=== PATIENT | male | born 1950 | race Caucasian/White ===

== ENCOUNTER 2020-07-04 15:26 | Inpatient (IN) | payer MEDICARE ==
[2020-07-04] MEDS ORDERED: Ondansetron PF 4 MG/2 ML Vial IVP PRN (16:29)
[2020-07-04] MEDS ORDERED: Diazepam 5 MG TAB PO PRN (16:29)
[2020-07-04] MEDS ORDERED: Communication Order-Pharmacy FS SCH (16:29)
[2020-07-04] MEDS ORDERED: Dextrose 50% Abboject 50 ML SYRINGE SLOW IVP PRN ×2 (16:31→16:33)
[2020-07-04] MEDS ORDERED: Dextrose 5% in Water 1,000 ML IV PRN ×2 (16:31→16:33)
[2020-07-04] MEDS ORDERED: Melatonin 3 MG TAB PO PRN (16:31)
[2020-07-04] MEDS ORDERED: HumaLOG 300 UNITS/3 ML VIAL SC PRN ×3 (16:33→16:37)
[2020-07-04 17:07] LABS: #Basophils 0.1 thou/uL (0.0-0.2); #Eosinphils 0.3 thou/uL (0.0-0.7); #Lymphocytes 1.9 thou/uL (1.20-3.40); #Monocytes 0.8 thou/uL (0.11-0.59); #Neutrophils 8.2 thou/uL (1.40-6.50); %Basophils 0.7 % (0.0-1.0); %Eosinophils 2.5 % (0.0-10.0); %Lymphocytes 16.8 % (21.0-51.0); %Monocytes 7.4 % (0.0-10.0); %Neutrophils 72.6 % (42.0-75.0); Hemoglobin 13.4 g/dL (14.0-18.0); Mean Corpuscular HGB CONC 33.5 g/dL (32.0-36.0); Mean Corpuscular Hemoglobin 31.8 pg (27.0-31.0); Mean Platelet Volume 7.9 fL (7.4-10.4); Platelet Count 198 thou/uL (130-400); RBC Distribution Width 11.7 % (11.5-14.5); Red Blood Cell (RBC) Count 4.22 mill/uL (4.70-6.10); White Blood Cell (WBC) Count 11.3 thou/uL (4.8-10.8)
[2020-07-04 17:12] VITALS: BMI 29.9
[2020-07-04 17:12] LABS: INR-International Normal Ratio 1.1; Prothrombin Time 14.4 sec (12.0-14.7)
[2020-07-04 17:13] LABS: PTT 33.6 sec (22.9-36.1)
[2020-07-04 17:17] LABS: Hemoglobin A1c 5.1 % (4.0-6.0)
[2020-07-04 17:31] LABS: Phosphorus 2.8 mg/dL (2.3-4.7)
[2020-07-04 17:35] LABS: ALT (SGPT) 16 U/L (8-55); AST (SGOT) 12 U/L (5-34); Albumin 4.1 g/dL (3.4-4.8); Alkaline Phosphatase 46 U/L (40-110); Anion Gap 12 mmol/L (10-20); BUN (Urea Nitrogen) 13 mg/dL (8.4-25.7); Bilirubin, Total 0.5 mg/dL (0.2-1.2); Calc. Creatinine Clearance 124 mL/min (70-130); Calcium 8.8 mg/dL (7.8-10.44); Carbon Dioxide 23 mmol/L (23-31); Chloride 105 mmol/L (98-107); Globulin 2.9 g/dL (2.4-3.5); Glucose 111 mg/dL (80-115); Magnesium 1.8 mg/dL (1.6-2.6); Potassium 3.6 mmol/L (3.5-5.1); Sodium 136 mmol/L (136-145)
[2020-07-04 17:36] LABS: Troponin I 0.017 ng/mL (< 0.028)
[2020-07-04] MEDS ORDERED: Atropine Sulfate 1 mg/1 ml Vial IVP PRN (19:33)
[2020-07-04] MEDS ORDERED: Magnesium 2 GM/50 ML 2 GM in Premix Bag 1 BAG IVPB SCH (19:45)
[2020-07-04] MEDS ORDERED: Enoxaparin Sodium 80 MG/0.8 ML SYRINGE SC SCH (21:00)
[2020-07-04] MEDS ORDERED: Famotidine 20 MG TAB PO SCH (21:00)
[2020-07-04] MEDS ORDERED: Atorvastatin Calcium 10 MG TAB PO SCH (21:00)
[2020-07-05 01:27] LABS: SARS-CoV-2 PCR by NAA Not Detected (NotDetected)
[2020-07-05] MEDS: Levothyroxine Sodium 75 MCG TAB PO SCH ×2 (04:41→07:44)
[2020-07-05 04:53] LABS: #Basophils 0.1 thou/uL (0.0-0.2); #Eosinphils 0.3 thou/uL (0.0-0.7); #Monocytes 0.7 thou/uL (0.11-0.59); #Neutrophils 5.9 thou/uL (1.40-6.50); %Basophils 0.7 % (0.0-1.0); %Eosinophils 3.5 % (0.0-10.0); %Lymphocytes 22.7 % (21.0-51.0); %Monocytes 7.5 % (0.0-10.0); %Neutrophils 65.6 % (42.0-75.0); Mean Corpuscular HGB CONC 33.3 g/dL (32.0-36.0); Mean Corpuscular Hemoglobin 31.4 pg (27.0-31.0); Mean Corpuscular Volume 94.5 fL (78.0-98.0); Mean Platelet Volume 7.5 fL (7.4-10.4); Platelet Count 181 thou/uL (130-400); RBC Distribution Width 11.7 % (11.5-14.5); Red Blood Cell (RBC) Count 4.15 mill/uL (4.70-6.10)
[2020-07-05 05:13] LABS: Anion Gap 10 mmol/L (10-20); BUN (Urea Nitrogen) 12 mg/dL (8.4-25.7); Calc. Creatinine Clearance 127 mL/min (70-130); Calcium 8.7 mg/dL (7.8-10.44); Carbon Dioxide 26 mmol/L (23-31); Chloride 106 mmol/L (98-107); Glucose 105 mg/dL (80-115); Potassium 3.8 mmol/L (3.5-5.1); Sodium 138 mmol/L (136-145)
[2020-07-05] MEDS ORDERED: Albumin 5% 500 ML ONE (07:14)
[2020-07-05] MEDS: Aspirin 325 mg Enteric Coated Tablet PO SCH ×2 (07:44→16:53)
[2020-07-05] MEDS ORDERED: Clindamycin/D5W 900 MG in Premix Bag 1 BAG IVPB SCH (11:00)
[2020-07-05] MEDS ORDERED: EPINEPHrine 1 MG/ML AMP ONE (11:02)
[2020-07-05] MEDS ORDERED: Dexamethasone 4 mg/ml Vial ONE (11:02)
[2020-07-05] MEDS ORDERED: Bupivacaine PF 0.5% 30 ML VIAL ONE (11:02)
[2020-07-05] MEDS ORDERED: Midazolam HCl 2 mg/2 ml Vial ONE (11:06)
[2020-07-05] MEDS ORDERED: Dexmedetomidine 200 MCG/2 ML VIAL ONE (11:06)
[2020-07-05] MEDS ORDERED: Fentanyl 100 MCG/2 ML VIAL ONE ×2 (11:06→15:23)
[2020-07-05] MEDS ORDERED: Vecuronium 10 MG VIAL ONE ×3 (11:06→11:30)
[2020-07-05] MEDS ORDERED: Midazolam HCl 5 mg/5 ml Vial ONE (11:06)
[2020-07-05] MEDS ORDERED: Clindamycin/D5W 900 mg/50 ml Premix Bag ONE (11:08)
[2020-07-05] MEDS ORDERED: Mannitol 12.5 GM/50 ML ONE (11:30)
[2020-07-05] MEDS ORDERED: Ondansetron PF 4 MG/2 ML Vial ONE (11:30)
[2020-07-05] MEDS ORDERED: Ketorolac Tromethamine 30 MG/ML VIAL ONE (11:30)
[2020-07-05] MEDS ORDERED: Glycopyrrolate 0.2 MG/ML 5 ML SYRINGE ONE (11:30)
[2020-07-05] MEDS ORDERED: Magnesium Sulfate 1 GM/2 ML VIAL ONE (11:30)
[2020-07-05] MEDS ORDERED: Nitroglycerin 50 MG/250 ML BOT ONE (11:30)
[2020-07-05] MEDS ORDERED: Papaverine 60 MG/2 ML VIAL ONE (11:30)
[2020-07-05] MEDS ORDERED: PHENYLEPHRINE-NS 100 MCG/ML 10 ML SYRINGE ONE (11:30)
[2020-07-05] MEDS ORDERED: Heparin 30,000 units/30 ml VIAL ONE (11:30)
[2020-07-05] MEDS ORDERED: Lidocaine 1% PF 5 ML VIAL ONE (11:30)
[2020-07-05] MEDS ORDERED: Protamine Sulfate 250 MG/25 ML VIAL ONE (11:30)
[2020-07-05] MEDS ORDERED: Cardioplegic Soln 1,000 ML BAG ONE (11:30)
[2020-07-05] MEDS ORDERED: Thrombin 5000 UNITS/5 ML VIAL ONE (11:30)
[2020-07-05] MEDS ORDERED: Sodium Bicarb 50 MEQ/50 ML Abboject 8.4% SYRINGE ONE (11:30)
[2020-07-05] MEDS ORDERED: Heparin 5,000 UNITS/ML VIAL ONE (11:30)
[2020-07-05] MEDS ORDERED: Aminocaproic Acid 5 GM/20 ML VIAL ONE (11:30)
[2020-07-05] MEDS ORDERED: Calcium Chloride 1 GM/10 ML Abboject SYRINGE ONE ×2 (11:30→17:26)
[2020-07-05] MEDS ORDERED: PROPOFOL 200 MG/20 ML VIAL ONE (11:30)
[2020-07-05] MEDS ORDERED: Lidocaine 2% PF 100 mg/5 ml Syringe ONE (11:30)
[2020-07-05] MEDS ORDERED: Potassium Chloride 60 MEQ/30 ML VIAL ONE (11:30)
[2020-07-05] MEDS ORDERED: Nitroglycerin 50 MG/250 ML BOT 250 ML ONE (15:41)
[2020-07-05] MEDS ORDERED: hydrALAZINE 20 MG/ML VIAL ONE (15:46)
[2020-07-05 16:00] LABS: Actual Bicarbonate (HCO3a) 19.1 mEq/L (22-28); Base Excess (BEa) -7.2 mEq/L (-2.0 to +3.0); CO2 Tension 41.2 mmHg (35.0-45.0); Calcium, Ionized (arterial) 1.14 mmol/L (1.12-1.30); Carboxyhemoglobin (COHb) 0.6 gm% (0.0-3.0); Hemoglobin (Hb) 13.1 g/dL (14.0-18.0); pH, Arterial 7.28 (7.35-7.45)
[2020-07-05] MEDS ORDERED: niCARdipine 25 MG in Sodium Chloride 0.9% 250 ML 240 ML IVPB SCH (16:00)
[2020-07-05 16:01] LABS: Puncture Site Arterial Line
[2020-07-05] MEDS ORDERED: Potassium Chloride 20 MEQ/100 ML PREMIX BAG IVPB PRN (16:01)
[2020-07-05] MEDS ORDERED: Mag-Al 1200 mg/1200 mg/30 ML UDCUP PO PRN (16:01)
[2020-07-05] MEDS ORDERED: Promethazine HCl 25 MG/ML VIAL IM PRN (16:01)
[2020-07-05] MEDS ORDERED: Nitroglycerin 50 MG/250 ML BOT 250 ML IVPB PRN (16:01)
[2020-07-05] MEDS ORDERED: Morphine 2 MG/ML VIAL SLOW IVP PRN (16:01)
[2020-07-05] MEDS ORDERED: Bisacodyl 10 MG SUPP PR PRN (16:01)
[2020-07-05] MEDS ORDERED: Guaifenesin DM 100-10/5 ML UDCUP PO PRN (16:01)
[2020-07-05] MEDS ORDERED: D5 1/2 NS w/20 mEq KCL 1,000 ML IV SCH (16:01)
[2020-07-05] MEDS ORDERED: Post-Op Insulin Drip Protocol IVPB ONE (16:01)
[2020-07-05] MEDS ORDERED: Magnesium 2 GM/50 ML 2 GM in Premix Bag 1 BAG IVPB SCH (16:01)
[2020-07-05] MEDS ORDERED: Acetaminophen 325 MG TAB PO PRN (16:01)
[2020-07-05] MEDS ORDERED: hydrALAZINE 20 MG/ML VIAL SLOW IVP PRN (16:01)
[2020-07-05] MEDS ORDERED: Morphine 4 MG/ML VIAL ONE (16:03)
[2020-07-05] MEDS ORDERED: Propofol 1,000 MG/100 ML VIAL IV ONE (16:10)
[2020-07-05 16:12] LABS: #Eosinphils 0.1 thou/uL (0.0-0.7); #Lymphocytes 1.4 thou/uL (1.20-3.40); #Monocytes 0.8 thou/uL (0.11-0.59); #Neutrophils 14.3 thou/uL (1.40-6.50); %Basophils 0.2 % (0.0-1.0); %Eosinophils 0.7 % (0.0-10.0); %Lymphocytes 8.5 % (21.0-51.0); %Monocytes 4.6 % (0.0-10.0); Hemoglobin 12.5 g/dL (14.0-18.0); Mean Corpuscular HGB CONC 33.8 g/dL (32.0-36.0); Mean Corpuscular Hemoglobin 32.4 pg (27.0-31.0); Mean Platelet Volume 8.1 fL (7.4-10.4); Platelet Count 139 thou/uL (130-400); RBC Distribution Width 11.7 % (11.5-14.5); Red Blood Cell (RBC) Count 3.85 mill/uL (4.70-6.10); White Blood Cell (WBC) Count 16.6 thou/uL (4.8-10.8)
[2020-07-05 16:17] LABS: PTT 34.2 sec (22.9-36.1)
[2020-07-05 16:18] LABS: INR-International Normal Ratio 1.3; Prothrombin Time 16.8 sec (12.0-14.7)
[2020-07-05] MEDS: Clindamycin/D5W 900 MG in Premix Bag 1 BAG IVPB SCH ×2 (16:30→21:38)
[2020-07-05] MEDS ORDERED: Propofol 1,000 MG/100 ML VIAL IV PRN (16:30)
[2020-07-05] MEDS ORDERED: Propofol BOLUS 1,000 MG/100 ML VIAL IV PRN (16:30)
[2020-07-05 16:32] LABS: Anion Gap 12 mmol/L (10-20); BUN (Urea Nitrogen) 11 mg/dL (8.4-25.7); Calc. Creatinine Clearance 133 mL/min (70-130); Carbon Dioxide 23 mmol/L (23-31); Chloride 107 mmol/L (98-107); Glucose 158 mg/dL (80-115); Potassium 4.3 mmol/L (3.5-5.1); Sodium 138 mmol/L (136-145)
[2020-07-05] MEDS ORDERED: Insulin Regular 300 UNITS/3 ML VIAL SC PRN (16:45)
[2020-07-05] MEDS ORDERED: Dextrose 5% in Water 1,000 ML IV PRN (16:45)
[2020-07-05] MEDS ORDERED: HUMULIN R 100 UNITS in Sodium Chloride 0.9% 100 ML IVPB SCH (16:45)
[2020-07-05] MEDS: DOPamine 400 MG/D5W 250 ML 250 ML IVPB PRN (17:20)
[2020-07-05 17:45] LABS: Actual Bicarbonate (HCO3a) 18.9 mEq/L (22-28); Base Excess (BEa) -6.8 mEq/L (-2.0 to +3.0); CO2 Tension 38.8 mmHg (35.0-45.0); Calcium, Ionized (arterial) 1.29 mmol/L (1.12-1.30); Carboxyhemoglobin (COHb) 0.5 gm% (0.0-3.0); Hemoglobin (Hb) 12.9 g/dL (14.0-18.0); O2 Tension (PaO2), arterial 96.3 mmHg (> 70.0); Potassium - ABG Lab 3.89 mmol/L (3.70-5.30); pH, Arterial 7.31 (7.35-7.45)
[2020-07-05 17:47] LABS: Puncture Site Arterial Line
[2020-07-05] MEDS: Hetastarch 6% 500 ML 500 ML IVPB PRN (17:52)
[2020-07-05] MEDS: Ketorolac Tromethamine 30 MG/ML VIAL IVP SCH ×2 (18:10→23:34)
[2020-07-05] MEDS: Fentanyl 100 MCG/2 ML VIAL SLOW IVP PRN ×2 (19:15→21:35)
[2020-07-05] MEDS: traMADol HCl 50 MG TAB PO PRN (20:15)
[2020-07-05] MEDS: Famotidine/PF 20 mg/2ml Vial SLOW IVP SCH (20:16)
[2020-07-05] MEDS: Ondansetron PF 4 MG/2 ML Vial IVP PRN (20:16)
[2020-07-05] MEDS ORDERED: Atorvastatin Calcium 20 MG TAB PO SCH (21:00)
[2020-07-05 21:29] LABS: Potassium 4.4 mmol/L (3.5-5.1)
[2020-07-06] MEDS: Fentanyl 100 MCG/2 ML VIAL SLOW IVP PRN ×7 (01:08→23:35)
[2020-07-06] MEDS: DOPamine 400 MG/D5W 250 ML 250 ML IVPB PRN (01:59)
[2020-07-06] MEDS: Clindamycin/D5W 900 MG in Premix Bag 1 BAG IVPB SCH (04:17)
[2020-07-06] MEDS: Hetastarch 6% 500 ML 500 ML IVPB PRN (04:17)
[2020-07-06 04:50] LABS: #Lymphocytes 0.7 thou/uL (1.20-3.40); #Monocytes 0.9 thou/uL (0.11-0.59); #Neutrophils 10.3 thou/uL (1.40-6.50); %Basophils 0.1 % (0.0-1.0); %Eosinophils 0.1 % (0.0-10.0); %Lymphocytes 5.9 % (21.0-51.0); %Monocytes 7.6 % (0.0-10.0); %Neutrophils 86.4 % (42.0-75.0); Hemoglobin 9.6 g/dL (14.0-18.0); Mean Corpuscular HGB CONC 33.1 g/dL (32.0-36.0); Mean Corpuscular Hemoglobin 31.6 pg (27.0-31.0); Mean Corpuscular Volume 95.5 fL (78.0-98.0); Mean Platelet Volume 7.6 fL (7.4-10.4); Platelet Count 130 thou/uL (130-400); RBC Distribution Width 11.7 % (11.5-14.5); Red Blood Cell (RBC) Count 3.03 mill/uL (4.70-6.10); White Blood Cell (WBC) Count 11.9 thou/uL (4.8-10.8)
[2020-07-06 05:14] LABS: Anion Gap 10 mmol/L (10-20); BUN (Urea Nitrogen) 14 mg/dL (8.4-25.7); Calc. Creatinine Clearance 131 mL/min (70-130); Calcium 7.6 mg/dL (7.8-10.44); Carbon Dioxide 22 mmol/L (23-31); Cardiac Risk 3.5 (Less than 4.5); Chloride 109 mmol/L (98-107); Cholesterol 73 mg/dl (< 200 Desired); Glucose 121 mg/dL (80-115); HDL Cholesterol 21 mg/dL (>60 Neg Risk); LDL Cholesterol, Calculated 39 mg/dL; Potassium 4.4 mmol/L (3.5-5.1); Sodium 137 mmol/L (136-145); Triglycerides 65 mg/dL (Less than 150)
[2020-07-06] MEDS: Ketorolac Tromethamine 30 MG/ML VIAL IVP SCH ×3 (05:51→17:21)
[2020-07-06] MEDS ORDERED: Levofloxacin 500 mg/D5W 750 MG in Premix Bag 1 BAG IVPB SCH (06:00)
[2020-07-06] MEDS: Famotidine/PF 20 mg/2ml Vial SLOW IVP SCH (08:34)
[2020-07-06] MEDS: Ondansetron PF 4 MG/2 ML Vial IVP PRN (08:39)
[2020-07-06] MEDS ORDERED: Nitroglycerin 0.4 MG TAB (25 Tab Bottle) SL PRN (08:50)
[2020-07-06] MEDS ORDERED: Bisacodyl 10 MG SUPP PR PRN (08:50)
[2020-07-06] MEDS ORDERED: Bisacodyl 5 MG TAB PO PRN (08:50)
[2020-07-06] MEDS ORDERED: Mineral Oil ENEMA PR PRN (08:50)
[2020-07-06] MEDS ORDERED: Guaifenesin DM 100-10/5 ML UDCUP PO PRN (08:50)
[2020-07-06] MEDS ORDERED: Mag-Al 1200 mg/1200 mg/30 ML UDCUP PO PRN (08:50)
[2020-07-06] MEDS ORDERED: Aspirin 325 MG TAB PO SCH (09:00)
[2020-07-06] MEDS ORDERED: Metoprolol Tartrate 25 MG TAB PO SCH (09:00)
[2020-07-06] MEDS ORDERED: Magnesium 2 GM/50 ML 2 GM in Premix Bag 1 BAG IVPB SCH (09:00)
[2020-07-06] MEDS ORDERED: Dextrose 5% in Water 1,000 ML IV PRN (09:15)
[2020-07-06] MEDS ORDERED: Dextrose 50% Abboject 50 ML SYRINGE SLOW IVP PRN (09:15)
[2020-07-06] MEDS ORDERED: Insulin Regular 300 UNITS/3 ML VIAL SC PRN (09:15)
[2020-07-06] MEDS: Hydrochlorothiazide 25 MG TAB PO SCH (09:59)
[2020-07-06] MEDS: Aspirin 325 mg Enteric Coated Tablet PO SCH (10:41)
[2020-07-06] MEDS: Acetaminophen/Codeine 30-300mg Tablet PO PRN ×2 (11:20→20:05)
[2020-07-06] MEDS: Zolpidem Tartrate 5 MG TAB PO PRN (20:05)
[2020-07-06] MEDS: Atorvastatin Calcium 10 MG TAB PO SCH (20:06)
[2020-07-06] MEDS ORDERED: Diltiazem 125 MG in Sodium Chloride 0.9% 100 ML IVPB SCH (21:30)
[2020-07-07] MEDS ORDERED: Metoprolol Tartrate 5 MG/5 ML VIAL IVP SCH (00:15)
[2020-07-07] MEDS: Ketorolac Tromethamine 30 MG/ML VIAL IVP SCH ×6 (00:39→23:37)
[2020-07-07] MEDS ORDERED: Melatonin 3 MG TAB PO SCH ×2 (02:15→20:00)
[2020-07-07] MEDS ORDERED: Metoprolol Tartrate 25 MG TAB PO SCH (04:45)
[2020-07-07] MEDS: Levothyroxine Sodium 75 MCG TAB PO SCH (04:47)
[2020-07-07 05:23] LABS: #Eosinphils 0.1 thou/uL (0.0-0.7); #Lymphocytes 1.2 thou/uL (1.20-3.40); #Monocytes 0.9 thou/uL (0.11-0.59); #Neutrophils 8.7 thou/uL (1.40-6.50); %Basophils 0.3 % (0.0-1.0); %Eosinophils 1.2 % (0.0-10.0); %Lymphocytes 11.3 % (21.0-51.0); %Monocytes 7.7 % (0.0-10.0); %Neutrophils 79.5 % (42.0-75.0); Hemoglobin 8.5 g/dL (14.0-18.0); Mean Corpuscular Hemoglobin 30.8 pg (27.0-31.0); Mean Corpuscular Volume 96.3 fL (78.0-98.0); Mean Platelet Volume 7.6 fL (7.4-10.4); Platelet Count 124 thou/uL (130-400); RBC Distribution Width 11.9 % (11.5-14.5); Red Blood Cell (RBC) Count 2.76 mill/uL (4.70-6.10)
[2020-07-07 05:52] LABS: Anion Gap 11 mmol/L (10-20); BUN (Urea Nitrogen) 22 mg/dL (8.4-25.7); Calc. Creatinine Clearance 104 mL/min (70-130); Calcium 7.3 mg/dL (7.8-10.44); Carbon Dioxide 19 mmol/L (23-31); Chloride 107 mmol/L (98-107); Glucose 109 mg/dL (80-115); Magnesium 2.4 mg/dL (1.6-2.6); Potassium 4.2 mmol/L (3.5-5.1); Sodium 133 mmol/L (136-145)
[2020-07-07] MEDS ORDERED: Furosemide 20 MG TAB PO SCH (07:45)
[2020-07-07] MEDS: Niacin 500 MG TAB PO SCH (09:34)
[2020-07-07] MEDS: Aspirin 325 mg Enteric Coated Tablet PO SCH (09:34)
[2020-07-07] MEDS: Fish Oil 1,000 MG CAP PO SCH (09:34)
[2020-07-07] MEDS: Hydrochlorothiazide 25 MG TAB PO SCH (10:54)
[2020-07-07] MEDS: Potassium Chloride 10 MEQ TAB PO SCH (10:54)
[2020-07-07] MEDS: Bisacodyl 5 MG TAB PO PRN (20:32)
[2020-07-07] MEDS: Atorvastatin Calcium 10 MG TAB PO SCH (20:33)
[2020-07-08] MEDS: Ketorolac Tromethamine 30 MG/ML VIAL IVP SCH (05:52)
[2020-07-08] MEDS: Levothyroxine Sodium 75 MCG TAB PO SCH (05:53)
[2020-07-08] MEDS: Acetaminophen/Codeine 30-300mg Tablet PO PRN ×2 (06:18→21:03)
[2020-07-08] MEDS: ALPRAZolam 0.5 MG TAB PO PRN ×3 (06:50→21:03)
[2020-07-08] MEDS: Potassium Chloride 10 MEQ TAB PO SCH ×3 (08:29→16:28)
[2020-07-08] MEDS: Aspirin 325 mg Enteric Coated Tablet PO SCH (08:29)
[2020-07-08] MEDS: Niacin 500 MG TAB PO SCH (08:30)
[2020-07-08] MEDS: Fish Oil 1,000 MG CAP PO SCH (08:30)
[2020-07-08] MEDS: Furosemide 40 MG TAB PO SCH ×2 (08:30→14:56)
[2020-07-08] MEDS: Hydrochlorothiazide 25 MG TAB PO SCH (08:30)
[2020-07-08] MEDS: Bisacodyl 5 MG TAB PO PRN (14:57)
[2020-07-08] MEDS ORDERED: Amiodarone 150 MG in Dextrose 5% in Water 100 ML IVPB SCH (18:00)
[2020-07-08] MEDS: Amiodarone 450 MG in Dextrose 5% in Water 250 ML IVPB SCH (18:15)
[2020-07-08] MEDS: Atorvastatin Calcium 10 MG TAB PO SCH (21:03)
[2020-07-09] MEDS: ALPRAZolam 0.5 MG TAB PO PRN ×3 (05:29→23:01)
[2020-07-09] MEDS: Levothyroxine Sodium 75 MCG TAB PO SCH (05:29)
[2020-07-09] MEDS: Acetaminophen/Codeine 30-300mg Tablet PO PRN ×2 (09:24→16:33)
[2020-07-09] MEDS: Hydrochlorothiazide 25 MG TAB PO SCH (09:25)
[2020-07-09] MEDS: Fish Oil 1,000 MG CAP PO SCH (09:25)
[2020-07-09] MEDS: Aspirin 325 mg Enteric Coated Tablet PO SCH (09:25)
[2020-07-09] MEDS: Furosemide 40 MG TAB PO SCH ×2 (09:25→14:53)
[2020-07-09] MEDS: Niacin 500 MG TAB PO SCH (09:25)
[2020-07-09] MEDS: Potassium Chloride 10 MEQ TAB PO SCH ×2 (09:25→16:33)
[2020-07-09] MEDS: Amiodarone 450 MG in Dextrose 5% in Water 250 ML IVPB SCH (16:33)
[2020-07-09] MEDS: Atorvastatin Calcium 10 MG TAB PO SCH (19:55)
[2020-07-09] MEDS: traMADol HCl 50 MG TAB PO PRN (23:01)
[2020-07-10] MEDS: Zolpidem Tartrate 5 MG TAB PO PRN (00:32)
[2020-07-10] MEDS: Levothyroxine Sodium 75 MCG TAB PO SCH (04:57)
[2020-07-10 05:46] LABS: Anion Gap 14 mmol/L (10-20); BUN (Urea Nitrogen) 16 mg/dL (8.4-25.7); Calc. Creatinine Clearance 136 mL/min (70-130); Calcium 7.8 mg/dL (7.8-10.44); Carbon Dioxide 26 mmol/L (23-31); Chloride 99 mmol/L (98-107); Glucose 108 mg/dL (80-115); Potassium 3.6 mmol/L (3.5-5.1); Sodium 135 mmol/L (136-145)
[2020-07-10] MEDS: Aspirin 325 mg Enteric Coated Tablet PO SCH (08:50)
[2020-07-10] MEDS: Potassium Chloride 10 MEQ TAB PO SCH ×2 (08:51→16:55)
[2020-07-10] MEDS: Fish Oil 1,000 MG CAP PO SCH (08:51)
[2020-07-10] MEDS: Hydrochlorothiazide 25 MG TAB PO SCH (08:51)
[2020-07-10] MEDS: Amiodarone 200 MG TAB PO SCH ×2 (08:51→20:17)
[2020-07-10] MEDS: Niacin 500 MG TAB PO SCH (08:51)
[2020-07-10] MEDS: traMADol HCl 50 MG TAB PO PRN (10:05)
[2020-07-10] MEDS: Furosemide 40 MG TAB PO SCH ×2 (11:38→14:09)
[2020-07-10] MEDS: Acetaminophen/Codeine 30-300mg Tablet PO PRN (14:09)
[2020-07-10] MEDS: ALPRAZolam 0.5 MG TAB PO PRN ×2 (14:09→22:43)
[2020-07-10] MEDS: Atorvastatin Calcium 10 MG TAB PO SCH (20:17)
[2020-07-11] MEDS: Acetaminophen/Codeine 30-300mg Tablet PO PRN ×2 (01:46→20:49)
[2020-07-11] MEDS: Levothyroxine Sodium 75 MCG TAB PO SCH (04:54)
[2020-07-11] MEDS: Amiodarone 200 MG TAB PO SCH ×3 (08:16→20:49)
[2020-07-11] MEDS: Potassium Chloride 10 MEQ TAB PO SCH ×2 (08:16→16:16)
[2020-07-11] MEDS: Aspirin 325 mg Enteric Coated Tablet PO SCH (08:17)
[2020-07-11] MEDS: Furosemide 40 MG TAB PO SCH ×2 (08:17→13:48)
[2020-07-11] MEDS: Fish Oil 1,000 MG CAP PO SCH (08:17)
[2020-07-11] MEDS: Niacin 500 MG TAB PO SCH (08:18)
[2020-07-11] MEDS: Hydrochlorothiazide 25 MG TAB PO SCH (08:18)
[2020-07-11] MEDS ORDERED: Digoxin 0.5 MG/2 ML AMP SLOW IVP SCH (09:45)
[2020-07-11] MEDS: ALPRAZolam 0.5 MG TAB PO PRN (10:17)
[2020-07-11] MEDS: diphenhydrAMINE 25 MG CAP PO PRN (10:18)
[2020-07-11] MEDS: traMADol HCl 50 MG TAB PO PRN (13:48)
[2020-07-11] MEDS: Atorvastatin Calcium 10 MG TAB PO SCH (20:50)
[2020-07-11] MEDS: Apixaban 5 MG TAB PO SCH (20:50)
[2020-07-12] MEDS: diphenhydrAMINE 25 MG CAP PO PRN (02:15)
[2020-07-12] MEDS: Levothyroxine Sodium 75 MCG TAB PO SCH (05:11)
[2020-07-12] MEDS: Hydrochlorothiazide 25 MG TAB PO SCH (09:53)
[2020-07-12] MEDS: Furosemide 40 MG TAB PO SCH ×2 (09:53→15:41)
[2020-07-12] MEDS: Niacin 500 MG TAB PO SCH (09:53)
[2020-07-12] MEDS: Potassium Chloride 10 MEQ TAB PO SCH ×2 (09:54→15:41)
[2020-07-12] MEDS: Fish Oil 1,000 MG CAP PO SCH (09:55)
[2020-07-12] MEDS: Aspirin 81 mg Enteric Coated Tablet PO SCH (09:55)
[2020-07-12] MEDS: ALPRAZolam 0.5 MG TAB PO PRN ×3 (09:55→21:03)
[2020-07-12] MEDS: Amiodarone 200 MG TAB PO SCH ×3 (09:55→21:02)
[2020-07-12] MEDS: Apixaban 5 MG TAB PO SCH ×2 (09:55→21:02)
[2020-07-12] MEDS ORDERED: Metoprolol Tartrate 25 MG TAB PO SCH (10:30)
[2020-07-12 12:16] LABS: #Basophils 0.1 thou/uL (0.0-0.2); #Eosinphils 0.5 thou/uL (0.0-0.7); #Lymphocytes 1.5 thou/uL (1.20-3.40); #Monocytes 1.2 thou/uL (0.11-0.59); %Basophils 0.6 % (0.0-1.0); %Eosinophils 4.4 % (0.0-10.0); %Lymphocytes 12.3 % (21.0-51.0); %Monocytes 9.5 % (0.0-10.0); %Neutrophils 73.2 % (42.0-75.0); Hemoglobin 11.1 g/dL (14.0-18.0); Mean Corpuscular HGB CONC 34.3 g/dL (32.0-36.0); Mean Corpuscular Volume 96.1 fL (78.0-98.0); Mean Platelet Volume 6.6 fL (7.4-10.4); Platelet Count 315 thou/uL (130-400); RBC Distribution Width 11.9 % (11.5-14.5); Red Blood Cell (RBC) Count 3.38 mill/uL (4.70-6.10); White Blood Cell (WBC) Count 12.3 thou/uL (4.8-10.8)
[2020-07-12 12:36] LABS: Anion Gap 12 mmol/L (10-20); BUN (Urea Nitrogen) 22 mg/dL (8.4-25.7); Calc. Creatinine Clearance 99 mL/min (70-130); Carbon Dioxide 29 mmol/L (23-31); Chloride 96 mmol/L (98-107); Glucose 94 mg/dL (80-115); Sodium 133 mmol/L (136-145)
[2020-07-12] MEDS: Acetaminophen/Codeine 30-300mg Tablet PO PRN (18:02)
[2020-07-12] MEDS: Ondansetron PF 4 MG/2 ML Vial IVP PRN (18:03)
[2020-07-12] MEDS: Atorvastatin Calcium 10 MG TAB PO SCH (21:02)
[2020-07-12] MEDS: Metoprolol Tartrate 25 MG TAB PO SCH (21:02)
[2020-07-13] MEDS: diphenhydrAMINE 25 MG CAP PO PRN ×2 (01:58→22:48)
[2020-07-13 04:16] LABS: #Basophils 0.1 thou/uL (0.0-0.2); #Eosinphils 0.6 thou/uL (0.0-0.7); #Monocytes 0.9 thou/uL (0.11-0.59); #Neutrophils 8.4 thou/uL (1.40-6.50); %Basophils 0.7 % (0.0-1.0); %Eosinophils 4.9 % (0.0-10.0); %Lymphocytes 16.8 % (21.0-51.0); %Monocytes 7.5 % (0.0-10.0); %Neutrophils 70.1 % (42.0-75.0); Hemoglobin 10.5 g/dL (14.0-18.0); Mean Corpuscular HGB CONC 33.4 g/dL (32.0-36.0); Mean Corpuscular Hemoglobin 31.8 pg (27.0-31.0); Mean Corpuscular Volume 95.2 fL (78.0-98.0); Mean Platelet Volume 6.2 fL (7.4-10.4); Platelet Count 331 thou/uL (130-400); RBC Distribution Width 11.6 % (11.5-14.5); White Blood Cell (WBC) Count 11.9 thou/uL (4.8-10.8)
[2020-07-13 04:38] LABS: Anion Gap 17 mmol/L (10-20); BUN (Urea Nitrogen) 27 mg/dL (8.4-25.7); Calc. Creatinine Clearance 85 mL/min (70-130); Calcium 8.9 mg/dL (7.8-10.44); Carbon Dioxide 23 mmol/L (23-31); Chloride 96 mmol/L (98-107); Glucose 101 mg/dL (80-115); Potassium 4.2 mmol/L (3.5-5.1); Sodium 132 mmol/L (136-145)
[2020-07-13] MEDS: Levothyroxine Sodium 75 MCG TAB PO SCH (05:49)
[2020-07-13] MEDS: traMADol HCl 50 MG TAB PO PRN ×2 (08:49→22:48)
[2020-07-13] MEDS: Amiodarone 200 MG TAB PO SCH (08:51)
[2020-07-13] MEDS: Apixaban 5 MG TAB PO SCH ×2 (08:51→22:49)
[2020-07-13] MEDS: Niacin 500 MG TAB PO SCH (08:51)
[2020-07-13] MEDS: Hydrochlorothiazide 25 MG TAB PO SCH (08:51)
[2020-07-13] MEDS: Aspirin 81 mg Enteric Coated Tablet PO SCH (08:51)
[2020-07-13] MEDS: Potassium Chloride 10 MEQ TAB PO SCH ×2 (08:51→17:29)
[2020-07-13] MEDS: Metoprolol Tartrate 25 MG TAB PO SCH ×3 (08:52→22:50)
[2020-07-13] MEDS: Fish Oil 1,000 MG CAP PO SCH (08:52)
[2020-07-13] MEDS ORDERED: Calamine/Zinc Oxide 177 ML LOTION TP PRN (09:52)
[2020-07-13] MEDS ORDERED: Colchicine 0.6 MG TAB PO SCH (11:30)
[2020-07-13] MEDS ORDERED: Amiodarone 200 MG TAB PO SCH (21:00)
[2020-07-13] MEDS: Atorvastatin Calcium 10 MG TAB PO SCH (22:49)
[2020-07-14] MEDS: ALPRAZolam 0.5 MG TAB PO PRN (04:24)
[2020-07-14] MEDS: Levothyroxine Sodium 75 MCG TAB PO SCH (05:33)
[2020-07-14] MEDS: Niacin 500 MG TAB PO SCH (08:26)
[2020-07-14] MEDS: Hydrochlorothiazide 25 MG TAB PO SCH (08:27)
[2020-07-14] MEDS: Metoprolol Tartrate 25 MG TAB PO SCH (08:27)
[2020-07-14] MEDS: Apixaban 5 MG TAB PO SCH ×2 (08:28→20:20)
[2020-07-14] MEDS: Fish Oil 1,000 MG CAP PO SCH (08:28)
[2020-07-14] MEDS: Aspirin 81 mg Enteric Coated Tablet PO SCH (08:28)
[2020-07-14] MEDS: Potassium Chloride 10 MEQ TAB PO SCH ×2 (08:31→17:47)
[2020-07-14] MEDS ORDERED: Amiodarone 200 MG TAB PO SCH (09:00)
[2020-07-14] MEDS ORDERED: Colchicine 0.6 MG TAB PO SCH (09:00)
[2020-07-14] MEDS ORDERED: Albumin 25% 25 GM/100 ML BOT IVPB SCH (10:00)
[2020-07-14 13:05] LABS: Anion Gap 15 mmol/L (10-20); BUN (Urea Nitrogen) 35 mg/dL (8.4-25.7); Calc. Creatinine Clearance 79 mL/min (70-130); Calcium 9.1 mg/dL (7.8-10.44); Carbon Dioxide 25 mmol/L (23-31); Chloride 97 mmol/L (98-107); Glucose 112 mg/dL (80-115); Potassium 3.8 mmol/L (3.5-5.1); Sodium 133 mmol/L (136-145)
[2020-07-14] MEDS: Ketoconazole 2% Cream 15 gm Tube TOP SCH (15:12)
[2020-07-14] MEDS: Acetaminophen/Codeine 30-300mg Tablet PO PRN ×2 (16:21→22:14)
[2020-07-14] MEDS: Atorvastatin Calcium 10 MG TAB PO SCH (20:20)
[2020-07-14] MEDS: diphenhydrAMINE 25 MG CAP PO PRN (22:14)
[2020-07-15] MEDS: ALPRAZolam 0.5 MG TAB PO PRN (02:31)
[2020-07-15 04:51] LABS: Anion Gap 12 mmol/L (10-20); BUN (Urea Nitrogen) 29 mg/dL (8.4-25.7); Calc. Creatinine Clearance 100 mL/min (70-130); Calcium 8.6 mg/dL (7.8-10.44); Carbon Dioxide 25 mmol/L (23-31); Chloride 99 mmol/L (98-107); Glucose 103 mg/dL (80-115); Potassium 3.4 mmol/L (3.5-5.1); Sodium 133 mmol/L (136-145)
[2020-07-15] MEDS: Levothyroxine Sodium 75 MCG TAB PO SCH (06:13)
[2020-07-15] MEDS: Potassium Chloride 10 MEQ TAB PO SCH ×2 (08:16→17:09)
[2020-07-15] MEDS: Aspirin 81 mg Enteric Coated Tablet PO SCH (08:16)
[2020-07-15] MEDS: Apixaban 5 MG TAB PO SCH (08:16)
[2020-07-15] MEDS: Hydrochlorothiazide 25 MG TAB PO SCH (08:17)
[2020-07-15] MEDS: Fish Oil 1,000 MG CAP PO SCH (08:17)
[2020-07-15] MEDS: Ketoconazole 2% Cream 15 gm Tube TOP SCH (14:03)
[2020-07-15] MEDS ORDERED: Amiodarone 200 MG TAB PO SCH (15:30)
[2020-07-15 15:46] VITALS: BP 132/63; TEMP 98.3
[2020-07-16] MEDS ORDERED: Amiodarone 200 MG TAB PO SCH (09:00)
== END 2020-07-15 18:13 | disposition home health service (06) | DRG 236 ==
LOC: 2NO 15:26 → CCU 07-05 10:21 → 2NO 07-06 13:59
PROVIDERS: ADMIT Internal Medicine; ATTEND Internal Medicine
PROC: 02110Z9 Bypass Coronary Artery, Two Arteries from Left Internal Mammary, Open Approach (ICD-10-PCS; principal; 2020-07-05)
PROC: 021109W Bypass Coronary Artery, Two Arteries from Aorta with Autologous Venous Tissue, Open Approach (ICD-10-PCS; 2020-07-05)
PROC: 06BQ4ZZ Excision of Left Saphenous Vein, Percutaneous Endoscopic Approach (ICD-10-PCS; 2020-07-05)
PROC: 5A1221Z Performance of Cardiac Output, Continuous (ICD-10-PCS; 2020-07-05)
PROC: 3E033XZ Introduction of Vasopressor into Peripheral Vein, Percutaneous Approach (ICD-10-PCS; 2020-07-05)
DX: I25.110 Atherosclerotic heart disease of native coronary artery with unstable angina pectoris (principal); E87.1 Hypo-osmolality and hyponatremia; E83.42 Hypomagnesemia; E03.9 Hypothyroidism, unspecified; Z20.822 Contact with and (suspected) exposure to COVID-19; E78.5 Hyperlipidemia, unspecified; J44.9 Chronic obstructive pulmonary disease, unspecified; E66.01 Morbid (severe) obesity due to excess calories; E78.00 Pure hypercholesterolemia, unspecified; E11.22 Type 2 diabetes mellitus with diabetic chronic kidney disease; I12.9 Hypertensive chronic kidney disease with stage 1 through stage 4 chronic kidney disease, or unspecified chronic kidney disease; N18.2 Chronic kidney disease, stage 2 (mild); I48.0 Paroxysmal atrial fibrillation; I49.5 Sick sinus syndrome; L21.9 Seborrheic dermatitis, unspecified; R19.7 Diarrhea, unspecified; E87.6 Hypokalemia; Z88.0 Allergy status to penicillin; Z79.84 Long term (current) use of oral hypoglycemic drugs; Z79.82 Long term (current) use of aspirin; Z79.899 Other long term (current) drug therapy; Z87.891 Personal history of nicotine dependence; Z68.28 Body mass index [BMI] 28.0-28.9, adult
CPT/HCPCS: 36415; 36416; 36430; 71045; 80048; 80053; 80061; 82805; 83036; 83735; 84100; 84443; 84484; 85025; 85610; 85730; 86850; 86900; 86901; 87635; 93005; 93010; 93798; 93880; 94002; 94150; 94640; 94760; J0171; J0282; J0360; J1100; J1160; J1265; J1642; J1644; J1815; J1885; J2001; J2150; J2250; J2270; J2405; J2440; J2704; J2720; J3010; J3370; J3475; J3480; J3490; J7070; J7620; P9045; Q0163; S0017; S0020; S0028; U0003; U0005

== ENCOUNTER 2020-10-29 08:17 | Outpatient (CLI) | payer MEDICARE | END 2020-10-29 08:18 | disposition home or self-care (01) | LOC: BICCT 08:17 | PROVIDERS: ATTEND Family Medicine | DX: Z12.2 Encounter for screening for malignant neoplasm of respiratory organs (principal); Z87.891 Personal history of nicotine dependence; R91.8 Other nonspecific abnormal finding of lung field; I70.8 Atherosclerosis of other arteries | CPT/HCPCS: 71271 ==

== ENCOUNTER 2021-10-29 08:06 | Outpatient (CLI) | payer MEDICARE | END 2021-10-29 08:07 | disposition home or self-care (01) | LOC: BICCT 08:06 | PROVIDERS: ATTEND Family Medicine | DX: Z12.2 Encounter for screening for malignant neoplasm of respiratory organs (principal); R91.1 Solitary pulmonary nodule; Z87.891 Personal history of nicotine dependence | CPT/HCPCS: 71271 ==

== ENCOUNTER 2021-11-20 02:59 | Inpatient (IN) | payer MEDICARE ==
[2021-11-20] MEDS ORDERED: niCARdipine 25 MG/10 ML VIAL ONE (03:07)
[2021-11-20] MEDS ORDERED: Propofol 1,000 MG/100 ML VIAL IV ONE (03:11)
[2021-11-20 03:29] LABS: #Basophils 0.1 thou/uL (0.0-0.2); #Eosinphils 0.1 thou/uL (0.0-0.7); #Lymphocytes 1.4 thou/uL (1.20-3.40); #Monocytes 0.9 thou/uL (0.11-0.59); #Neutrophils 15.3 thou/uL (1.40-6.50); %Basophils 0.3 % (0.0-1.0); %Eosinophils 0.5 % (0.0-10.0); %Lymphocytes 7.9 % (21.0-51.0); %Monocytes 5.1 % (0.0-10.0); %Neutrophils 86.2 % (42.0-75.0); Hemoglobin 14.4 g/dL (14.0-18.0); Mean Corpuscular HGB CONC 33.8 g/dL (32.0-36.0); Mean Corpuscular Hemoglobin 31.8 pg (27.0-31.0); Mean Corpuscular Volume 93.9 fL (78.0-98.0); Platelet Count 215 thou/uL (130-400); RBC Distribution Width 11.6 % (11.5-14.5); Red Blood Cell (RBC) Count 4.53 mill/uL (4.70-6.10); White Blood Cell (WBC) Count 17.8 thou/uL (4.8-10.8)
[2021-11-20 03:41] LABS: ALT (SGPT) 13 U/L (8-55); AST (SGOT) 16 U/L (5-34); Albumin 4.4 g/dL (3.4-4.8); Alkaline Phosphatase 63 U/L (40-110); Anion Gap 19 mmol/L (10-20); BUN (Urea Nitrogen) 17 mg/dL (8.4-25.7); Bilirubin, Total 0.3 mg/dL (0.2-1.2); Calc. Creatinine Clearance 0 mL/min (70-130); Carbon Dioxide 20 mmol/L (23-31); Chloride 100 mmol/L (98-107); Estimated GFR 70; Globulin 3.2 g/dL (2.4-3.5); Glucose 190 mg/dL (83-110); Lipase 34 U/L (8-78); Magnesium 1.8 mg/dL (1.6-2.6); Potassium 3.5 mmol/L (3.5-5.1); Protein, Total 7.6 g/dL (5.8-8.1); Sodium 135 mmol/L (136-145)
[2021-11-20 03:43] LABS: Actual Bicarbonate (HCO3a) 20.7 mEq/L (22-28); Analyzer IN Cardio ER; CO2 Tension 40.8 mmHg (35.0-45.0); Calcium, Ionized (arterial) 1.16 mmol/L (1.12-1.30); Carboxyhemoglobin (COHb) 0.3 gm% (0.0-3.0); Hemoglobin (Hb) 15.1 g/dL (14.0-18.0); O2 Tension (PaO2), arterial 93.5 mmHg (> 70.0); Potassium - ABG Lab 3.31 mmol/L (3.70-5.30); pH, Arterial 7.32 (7.35-7.45)
[2021-11-20 03:45] LABS: Puncture Site RRA
[2021-11-20] MEDS ORDERED: [UNRECOGNIZED DRUG - OTHER] IV SCH ×2 (04:00→04:15)
[2021-11-20] MEDS ORDERED: HUM PROTHROMBIN CPLX IV SCH ×2 (04:00→04:15)
[2021-11-20] MEDS ORDERED: HUMAN PROTHROMBIN COMPLX IV SCH ×2 (04:00→04:15)
[2021-11-20 04:02] LABS: CKMB 2.1 ng/mL (0-6.6)
[2021-11-20] MEDS ORDERED: levETIRAcetam 500 MG/5 ML VIAL ONE (04:05)
[2021-11-20] MEDS ORDERED: manNITOL 20% 500 ML ONE (04:05)
[2021-11-20] MEDS ORDERED: Mannitol 12.5 GM/50 ML ONE (04:05)
[2021-11-20 04:07] LABS: INR-International Normal Ratio 2.2; PTT 43.2 sec (22.9-36.1); Prothrombin Time 24.7 sec (12.0-14.7)
[2021-11-20] MEDS ORDERED: Lidocaine 0.5%/Epinephrine 1:200,000 50 ml Vial ONE (04:09)
[2021-11-20] MEDS ORDERED: Bacitracin Zinc Ointment 30 gm TUBE ONE (04:09)
[2021-11-20] MEDS ORDERED: Thrombin 5000 UNITS/5 ML VIAL ONE (04:09)
[2021-11-20] MEDS ORDERED: Phenylephrine 10 MG/ML VIAL ONE ×2 (04:30→05:20)
[2021-11-20] MEDS ORDERED: fentaNYL Citrate/PF 100 MCG/2 ML SYRINGE ONE (04:30)
[2021-11-20] MEDS ORDERED: HYDROmorphone 2 MG/ML VIAL ONE (04:30)
[2021-11-20 04:36] LABS: Bacteria/HPF None Seen HPF (None Seen); Bilirubin Negative (Negative); Blood, Urine 1+ (Negative); Clarity Clear (Clear); Glucose, Urine (Dipstick) Greater than 1000 mg/dL (Negative); Ketone, Urine 20 mg/dL (Negative); Leukocyte Negative Leu/uL (Negative); Nitrite Negative (Negative); Protein, Urine (Dipstick) 70 mg/dL (Neg-Trace); RBC/HPF 0-3 HPF (0-3); Specific Gravity, Urine 1.021 (1.002-1.036); Squamous Epithelial None Seen HPF (0-3); Urobilinogen Normal mg/dL (Less than 2); WBC/HPF 0-3 HPF (0-3); pH, Urine 5.5 (5.0-9.0)
[2021-11-20 04:43] LABS: SARS-CoV-2 NAA Rapid Test Not Detected (NotDetected)
[2021-11-20] MEDS ORDERED: Ondansetron PF 4 MG/2 ML Vial ONE (05:20)
[2021-11-20] MEDS ORDERED: Dexamethasone 20 MG/5 ML VIAL ONE (05:20)
[2021-11-20] MEDS ORDERED: Lidocaine 1% PF 5 ML VIAL ONE (05:20)
[2021-11-20] MEDS ORDERED: Rocuronium Bromide 10 MG/ML (10ML VIAL) ONE (05:20)
[2021-11-20] MEDS ORDERED: Vecuronium 10 MG VIAL ONE (05:20)
[2021-11-20] MEDS ORDERED: Sodium Bicarb 50 MEQ/50 ML Abboject 8.4% SYRINGE ONE (07:20)
[2021-11-20] MEDS ORDERED: Promethazine HCl 25 MG/ML VIAL IVPB PRN (07:27)
[2021-11-20] MEDS ORDERED: Ventilator Sedation Protocol 1 EACH FS ONE (07:30)
[2021-11-20] MEDS ORDERED: Midazolam HCl 2 mg/2 ml Vial SLOW IVP PRN (07:43)
[2021-11-20] MEDS ORDERED: Propofol BOLUS 1,000 MG/100 ML VIAL IV PRN (07:45)
[2021-11-20] MEDS ORDERED: Fentanyl CADD 100 ML IV SCH (07:45)
[2021-11-20] MEDS ORDERED: Fentanyl BOLUS 250 ML IVPB PRN (07:45)
[2021-11-20 08:13] LABS: Sodium 133 mmol/L (136-145)
[2021-11-20 08:15] LABS: Lactic Acid 2.9 mmol/L (0.5-2.2)
[2021-11-20] MEDS ORDERED: HumaLOG 300 UNITS/3 ML VIAL SC PRN (08:15)
[2021-11-20] MEDS ORDERED: Dextrose 50% Abboject 50 ML SYRINGE SLOW IVP PRN (08:15)
[2021-11-20] MEDS ORDERED: Dextrose 5% in Water 1,000 ML IV PRN (08:15)
[2021-11-20 08:20] LABS: Actual Bicarbonate (HCO3a) 19.9 mEq/L (22-28); Base Excess (BEa) -4.8 mEq/L (-2.0 to +3.0); CO2 Tension 35.7 mmHg (35.0-45.0); Calcium, Ionized (arterial) 1.01 mmol/L (1.12-1.30); Carboxyhemoglobin (COHb) 0.4 gm% (0.0-3.0); Hemoglobin (Hb) 13.2 g/dL (14.0-18.0); O2 Tension (PaO2), arterial 65.3 mmHg (> 70.0); Potassium - ABG Lab 4.21 mmol/L (3.70-5.30); pH, Arterial 7.36 (7.35-7.45)
[2021-11-20 08:22] LABS: ALV-art Gradient 603.075 mmHg (0-20); Puncture Site Arterial Line
[2021-11-20] MEDS: levETIRAcetam 500 MG/5 ML VIAL SLOW IVP SCH ×2 (08:53→21:22)
[2021-11-20] MEDS: Pantoprazole 40 MG VIAL IVP SCH (08:54)
[2021-11-20] MEDS: Sodium Chloride 0.9% 1,000 ML IV SCH (08:54)
[2021-11-20] MEDS: CEFAZOLIN 2 GM in Sodium Chloride 0.9% 100 ML IVPB SCH ×3 (09:21→23:00)
[2021-11-20 09:35] LABS: Lactic Acid 2.6 mmol/L (0.5-2.2)
[2021-11-20 09:52] LABS: Troponin I 1.317 ng/mL (< 0.028)
[2021-11-20] MEDS: hydrALAZINE 20 MG/ML VIAL SLOW IVP PRN (10:06)
[2021-11-20] MEDS ORDERED: metroNIDAZOLE 500 MG/100 ML BAG ONE ×3 (12:02→18:51)
[2021-11-20] MEDS ORDERED: Cefepime 2 GM VIAL ONE ×3 (12:03→22:49)
[2021-11-20] MEDS: Cefepime 2 GM in Sodium Chloride 0.9% 100 ML IVPB SCH ×2 (12:13→22:55)
[2021-11-20] MEDS ORDERED: Magnesium 2 GM/50 ML(in water) 2 GM in Premix Bag 1 BAG IVPB SCH ×2 (12:15→14:00)
[2021-11-20] MEDS ORDERED: Potassium Chloride 20 MEQ in Premix Bag 1 BAG IVPB SCH (12:15)
[2021-11-20 12:57] LABS: Troponin I 2.132 ng/mL (< 0.028)
[2021-11-20] MEDS: metroNIDAZOLE 500 MG in Premix Bag 1 BAG IVPB SCH ×2 (12:57→19:17)
[2021-11-20] MEDS ORDERED: Electrolyte Replacement Protocol 1 EACH FS SCH (13:45)
[2021-11-20] MEDS ORDERED: Potassium Bicarbonate/Cit Ac 20 MEQ TAB ONE (13:52)
[2021-11-20] MEDS ORDERED: Electrolyte Replacement Protocol FS PRN (14:00)
[2021-11-20] MEDS ORDERED: Magnesium 2 GM/50 ML BAG (IN WATER) ONE (14:04)
[2021-11-20] MEDS ORDERED: Potassium Chloride 20 MEQ in Premix Bag 1 BAG IVPB PRN (14:30)
[2021-11-20] MEDS: Propofol 1,000 MG/100 ML VIAL IV PRN (14:36)
[2021-11-20] MEDS: Potassium Chloride 20 MEQ in Premix Bag 1 BAG IVPB SCH ×2 (15:09→17:20)
[2021-11-20] MEDS ORDERED: CEFAZOLIN 2 GM VIAL ONE (15:29)
[2021-11-20] MEDS ORDERED: HumaLOG 300 UNITS/3 ML VIAL ONE (17:16)
[2021-11-20] MEDS: HumaLOG 300 UNITS/3 ML VIAL SC PRN (17:19)
[2021-11-20 20:18] LABS: Troponin I 3.938 ng/mL (< 0.028)
[2021-11-20] MEDS: Morphine 4 MG/ML VIAL SLOW IVP PRN (21:20)
[2021-11-20 22:24] LABS: Potassium 4.4 mmol/L (3.5-5.1)
[2021-11-21] MEDS ORDERED: metroNIDAZOLE 500 MG/100 ML BAG ONE ×2 (02:25→12:54)
[2021-11-21] MEDS: metroNIDAZOLE 500 MG in Premix Bag 1 BAG IVPB SCH ×3 (02:29→19:50)
[2021-11-21 04:00] LABS: Hemoglobin 11.6 g/dL (14.0-18.0); Mean Corpuscular HGB CONC 33.6 g/dL (32.0-36.0); Mean Corpuscular Hemoglobin 31.7 pg (27.0-31.0); Mean Corpuscular Volume 94.5 fL (78.0-98.0); Mean Platelet Volume 7.8 fL (7.4-10.4); Platelet Count 205 thou/uL (130-400); RBC Distribution Width 11.8 % (11.5-14.5); Red Blood Cell (RBC) Count 3.67 mill/uL (4.70-6.10); White Blood Cell (WBC) Count 19.4 thou/uL (4.8-10.8)
[2021-11-21 04:16] LABS: ALT (SGPT) 11 U/L (8-55); AST (SGOT) 32 U/L (5-34); Albumin 3.5 g/dL (3.4-4.8); Alkaline Phosphatase 44 U/L (40-110); Anion Gap 14 mmol/L (10-20); BUN (Urea Nitrogen) 15 mg/dL (8.4-25.7); Bilirubin, Total 0.4 mg/dL (0.2-1.2); Calc. Creatinine Clearance 118 mL/min (70-130); Calcium 8.5 mg/dL (7.8-10.44); Carbon Dioxide 21 mmol/L (23-31); Chloride 106 mmol/L (98-107); Estimated GFR 81; Globulin 2.9 g/dL (2.4-3.5); Glucose 139 mg/dL (83-110); Magnesium 2.1 mg/dL (1.6-2.6); Potassium 4.3 mmol/L (3.5-5.1); Protein, Total 6.4 g/dL (5.8-8.1); Sodium 137 mmol/L (136-145)
[2021-11-21] MEDS ORDERED: NOREPINEPHRINE 8 MG/250 ML-D5W 250 ML ONE (04:23)
[2021-11-21] MEDS: NOREPINEPHRINE 8 MG/250 ML-D5W 250 ML IVPB SCH (04:30)
[2021-11-21 04:45] LABS: Band 11 % (5-11); Lymphocytes 4 % (21-51); MDiff Complete? YES; Monocytes 4 % (0-10); Neutrophil 81 % (42-75)
[2021-11-21 07:27] LABS: Actual Bicarbonate (HCO3a) 22.2 mEq/L (22-28); Base Excess (BEa) -0.1 mEq/L (-2.0 to +3.0); CO2 Tension 29.1 mmHg (35.0-45.0); Calcium, Ionized (arterial) 1.08 mmol/L (1.12-1.30); Carboxyhemoglobin (COHb) 0.3 gm% (0.0-3.0); Hemoglobin (Hb) 11.8 g/dL (14.0-18.0); Potassium - ABG Lab 3.83 mmol/L (3.70-5.30)
[2021-11-21 07:31] LABS: ALV-art Gradient 108.825 mmHg (0-20); Puncture Site Arterial Line
[2021-11-21] MEDS: levETIRAcetam 500 MG/5 ML VIAL SLOW IVP SCH ×2 (08:53→21:02)
[2021-11-21] MEDS: Sodium Chloride 0.9% 1,000 ML IV SCH ×2 (08:53→12:51)
[2021-11-21] MEDS ORDERED: CEFAZOLIN 2 GM VIAL ONE (09:00)
[2021-11-21] MEDS: CEFAZOLIN 2 GM in Sodium Chloride 0.9% 100 ML IVPB SCH ×2 (09:01→16:00)
[2021-11-21] MEDS: Pantoprazole 40 MG VIAL IVP SCH (09:02)
[2021-11-21] MEDS: Cefepime 2 GM in Sodium Chloride 0.9% 100 ML IVPB SCH ×2 (12:47→23:20)
[2021-11-21] MEDS: Metoprolol Tartrate 5 MG/5 ML VIAL IVP SCH ×4 (12:57→21:02)
[2021-11-21] MEDS: Propofol 1,000 MG/100 ML VIAL IV PRN (17:06)
[2021-11-22] MEDS: Sodium Chloride 0.9% 1,000 ML IV SCH ×2 (00:49→12:32)
[2021-11-22] MEDS: CEFAZOLIN 2 GM in Sodium Chloride 0.9% 100 ML IVPB SCH (02:01)
[2021-11-22] MEDS: NOREPINEPHRINE 8 MG/250 ML-D5W 250 ML IVPB SCH (03:45)
[2021-11-22] MEDS: metroNIDAZOLE 500 MG in Premix Bag 1 BAG IVPB SCH ×3 (03:49→19:39)
[2021-11-22 06:15] LABS: #Lymphocytes 1.5 thou/uL (1.20-3.40); #Monocytes 0.9 thou/uL (0.11-0.59); #Neutrophils 11.6 thou/uL (1.40-6.50); %Basophils 0.1 % (0.0-1.0); %Eosinophils 0.2 % (0.0-10.0); %Lymphocytes 10.7 % (21.0-51.0); %Monocytes 6.5 % (0.0-10.0); %Neutrophils 82.5 % (42.0-75.0); Hemoglobin 10.1 g/dL (14.0-18.0); Mean Corpuscular HGB CONC 33.2 g/dL (32.0-36.0); Mean Corpuscular Hemoglobin 31.6 pg (27.0-31.0); Mean Corpuscular Volume 95.3 fL (78.0-98.0); Mean Platelet Volume 7.3 fL (7.4-10.4); Platelet Count 163 thou/uL (130-400); RBC Distribution Width 11.8 % (11.5-14.5)
[2021-11-22 06:37] LABS: ALT (SGPT) 11 U/L (8-55); AST (SGOT) 28 U/L (5-34); Albumin 3.2 g/dL (3.4-4.8); Alkaline Phosphatase 43 U/L (40-110); Anion Gap 12 mmol/L (10-20); BUN (Urea Nitrogen) 18 mg/dL (8.4-25.7); Bilirubin, Total 0.2 mg/dL (0.2-1.2); Calc. Creatinine Clearance 153 mL/min (70-130); Carbon Dioxide 23 mmol/L (23-31); Chloride 107 mmol/L (98-107); Estimated GFR 96; Globulin 2.5 g/dL (2.4-3.5); Glucose 128 mg/dL (83-110); Magnesium 2.1 mg/dL (1.6-2.6); Potassium 3.8 mmol/L (3.5-5.1); Protein, Total 5.7 g/dL (5.8-8.1); Sodium 138 mmol/L (136-145)
[2021-11-22 07:12] LABS: Actual Bicarbonate (HCO3a) 21.8 mEq/L (22-28); Base Excess (BEa) -0.9 mEq/L (-2.0 to +3.0); CO2 Tension 29.4 mmHg (35.0-45.0); Calcium, Ionized (arterial) 1.06 mmol/L (1.12-1.30); Carboxyhemoglobin (COHb) 0.3 gm% (0.0-3.0); Hemoglobin (Hb) 10.5 g/dL (14.0-18.0); O2 Tension (PaO2), arterial 96.4 mmHg (> 70.0); Potassium - ABG Lab 3.72 mmol/L (3.70-5.30); pH, Arterial 7.49 (7.35-7.45)
[2021-11-22 07:17] LABS: Puncture Site LRA
[2021-11-22] MEDS: levETIRAcetam 500 MG/5 ML VIAL SLOW IVP SCH ×2 (09:00→21:07)
[2021-11-22] MEDS: Pantoprazole 40 MG VIAL IVP SCH (09:01)
[2021-11-22] MEDS: Metoprolol Tartrate 5 MG/5 ML VIAL IVP SCH ×4 (10:33→21:07)
[2021-11-22] MEDS ORDERED: Digoxin 0.5 MG/2 ML AMP SLOW IVP SCH ×2 (11:45→17:45)
[2021-11-22] MEDS ORDERED: Albumin 25% 0 ML ONE (13:13)
[2021-11-22] MEDS: Cefepime 2 GM in Sodium Chloride 0.9% 100 ML IVPB SCH ×2 (13:16→23:11)
[2021-11-22] MEDS: Digoxin 0.5 MG/2 ML AMP SLOW IVP SCH (18:10)
[2021-11-23] MEDS: Digoxin 0.5 MG/2 ML AMP SLOW IVP SCH (00:16)
[2021-11-23] MEDS: Morphine 4 MG/ML VIAL SLOW IVP PRN ×3 (02:35→17:58)
[2021-11-23] MEDS: Sodium Chloride 0.9% 1,000 ML IV SCH ×3 (02:46→22:55)
[2021-11-23] MEDS: metroNIDAZOLE 500 MG in Premix Bag 1 BAG IVPB SCH ×3 (03:03→20:16)
[2021-11-23 04:01] LABS: #Eosinphils 0.1 thou/uL (0.0-0.7); #Lymphocytes 1.5 thou/uL (1.20-3.40); #Monocytes 0.8 thou/uL (0.11-0.59); #Neutrophils 8.8 thou/uL (1.40-6.50); %Basophils 0.3 % (0.0-1.0); %Eosinophils 0.9 % (0.0-10.0); %Lymphocytes 13.3 % (21.0-51.0); %Monocytes 7.3 % (0.0-10.0); %Neutrophils 78.2 % (42.0-75.0); Hemoglobin 9.7 g/dL (14.0-18.0); Mean Corpuscular HGB CONC 32.8 g/dL (32.0-36.0); Mean Corpuscular Hemoglobin 31.2 pg (27.0-31.0); Mean Platelet Volume 7.7 fL (7.4-10.4); Platelet Count 161 thou/uL (130-400); RBC Distribution Width 11.7 % (11.5-14.5); Red Blood Cell (RBC) Count 3.09 mill/uL (4.70-6.10); White Blood Cell (WBC) Count 11.3 thou/uL (4.8-10.8)
[2021-11-23 04:22] LABS: ALT (SGPT) 9 U/L (8-55); AST (SGOT) 17 U/L (5-34); Albumin 3.2 g/dL (3.4-4.8); Alkaline Phosphatase 47 U/L (40-110); Anion Gap 9 mmol/L (10-20); BUN (Urea Nitrogen) 17 mg/dL (8.4-25.7); Bilirubin, Total 0.3 mg/dL (0.2-1.2); Calc. Creatinine Clearance 164 mL/min (70-130); Carbon Dioxide 26 mmol/L (23-31); Chloride 106 mmol/L (98-107); Estimated GFR 98; Globulin 2.6 g/dL (2.4-3.5); Glucose 124 mg/dL (83-110); Magnesium 2.1 mg/dL (1.6-2.6); Protein, Total 5.8 g/dL (5.8-8.1); Sodium 137 mmol/L (136-145)
[2021-11-23 06:34] LABS: Actual Bicarbonate (HCO3a) 23.7 mEq/L (22-28); Base Excess (BEa) -0.1 mEq/L (-2.0 to +3.0); CO2 Tension 34.9 mmHg (35.0-45.0); Calcium, Ionized (arterial) 1.08 mmol/L (1.12-1.30); Carboxyhemoglobin (COHb) 0.3 gm% (0.0-3.0); Hemoglobin (Hb) 9.8 g/dL (14.0-18.0); O2 Tension (PaO2), arterial 87.5 mmHg (> 70.0); Potassium - ABG Lab 3.81 mmol/L (3.70-5.30); pH, Arterial 7.45 (7.35-7.45)
[2021-11-23 08:03] LABS: ALV-art Gradient 82.775 mmHg (0-20); Puncture Site LRA
[2021-11-23] MEDS: Metoprolol Tartrate 5 MG/5 ML VIAL IVP SCH ×4 (08:16→20:17)
[2021-11-23] MEDS: levETIRAcetam 500 MG/5 ML VIAL SLOW IVP SCH ×2 (08:24→20:17)
[2021-11-23] MEDS: Pantoprazole 40 MG VIAL IVP SCH (08:24)
[2021-11-23] MEDS: Acetaminophen 650 MG/20.3 ML UDCUP PO SCH ×3 (08:30→20:18)
[2021-11-23] MEDS: Cefepime 2 GM in Sodium Chloride 0.9% 100 ML IVPB SCH ×2 (11:16→22:39)
[2021-11-24] MEDS: hydrALAZINE 20 MG/ML VIAL SLOW IVP PRN
[2021-11-24] MEDS: Acetaminophen 650 MG/20.3 ML UDCUP PO SCH ×4 (02:02→20:22)
[2021-11-24] MEDS: metroNIDAZOLE 500 MG in Premix Bag 1 BAG IVPB SCH ×4 (03:08→19:05)
[2021-11-24 03:41] LABS: #Eosinphils 0.1 thou/uL (0.0-0.7); #Lymphocytes 1.1 thou/uL (1.20-3.40); #Monocytes 0.5 thou/uL (0.11-0.59); #Neutrophils 10.4 thou/uL (1.40-6.50); %Basophils 0.2 % (0.0-1.0); %Eosinophils 0.5 % (0.0-10.0); %Lymphocytes 8.8 % (21.0-51.0); %Monocytes 4.3 % (0.0-10.0); %Neutrophils 86.3 % (42.0-75.0); Hemoglobin 10.9 g/dL (14.0-18.0); Mean Corpuscular HGB CONC 34.7 g/dL (32.0-36.0); Mean Corpuscular Volume 94.9 fL (78.0-98.0); Mean Platelet Volume 8.1 fL (7.4-10.4); Platelet Count 173 thou/uL (130-400); RBC Distribution Width 11.8 % (11.5-14.5)
[2021-11-24 04:00] LABS: ALT (SGPT) 10 U/L (8-55); AST (SGOT) 15 U/L (5-34); Albumin 3.1 g/dL (3.4-4.8); Alkaline Phosphatase 46 U/L (40-110); Anion Gap 15 mmol/L (10-20); BUN (Urea Nitrogen) 22 mg/dL (8.4-25.7); Bilirubin, Total 0.4 mg/dL (0.2-1.2); Calc. Creatinine Clearance 162 mL/min (70-130); Calcium 8.2 mg/dL (7.8-10.44); Carbon Dioxide 21 mmol/L (23-31); Chloride 106 mmol/L (98-107); Estimated GFR 98; Glucose 132 mg/dL (83-110); Potassium 3.8 mmol/L (3.5-5.1); Protein, Total 6.1 g/dL (5.8-8.1); Sodium 138 mmol/L (136-145)
[2021-11-24 04:01] LABS: Digoxin 0.44 ng/mL (0.8-2.0)
[2021-11-24] MEDS ORDERED: Magnesium 2 GM/50 ML(in water) 2 GM in Premix Bag 1 BAG IVPB SCH (04:15)
[2021-11-24] MEDS: Sodium Chloride 0.9% 1,000 ML IV SCH ×3 (07:40→09:29)
[2021-11-24 07:58] LABS: Actual Bicarbonate (HCO3a) 23.6 mEq/L (22-28); Base Excess (BEa) 1.3 mEq/L (-2.0 to +3.0); CO2 Tension 29.7 mmHg (35.0-45.0); Calcium, Ionized (arterial) 1.08 mmol/L (1.12-1.30); Carboxyhemoglobin (COHb) 0.3 gm% (0.0-3.0); Potassium - ABG Lab 3.68 mmol/L (3.70-5.30); pH, Arterial 7.52 (7.35-7.45)
[2021-11-24 08:08] LABS: O2 Tension (PaO2), arterial 58.3 mmHg (> 70.0)
[2021-11-24 08:10] LABS: ALV-art Gradient 118.475 mmHg (0-20); Puncture Site LRA
[2021-11-24] MEDS: Pantoprazole 40 MG VIAL IVP SCH (08:27)
[2021-11-24] MEDS: levETIRAcetam 500 MG/5 ML VIAL SLOW IVP SCH ×2 (08:28→20:22)
[2021-11-24] MEDS: Metoprolol Tartrate 5 MG/5 ML VIAL IVP SCH ×4 (08:52→20:21)
[2021-11-24 09:44] LABS: Actual Bicarbonate (HCO3a) 19.5 mEq/L (22-28); Analyzer IN Cardio OR; Base Excess (BEa) -6.7 mEq/L (-2.0 to +3.0); Calcium, Ionized (arterial) 1.02 mmol/L (1.12-1.30); Carboxyhemoglobin (COHb) 0.3 gm% (0.0-3.0); Hemoglobin (Hb) 13.6 g/dL (14.0-18.0); O2 Tension (PaO2), arterial 67.6 mmHg (> 70.0); Potassium - ABG Lab 3.95 mmol/L (3.70-5.30); pH, Arterial 7.29 (7.35-7.45)
[2021-11-24 09:44] LABS: Actual Bicarbonate (HCO3a) 20.8 mEq/L (22-28); Analyzer IN Cardio OR; Base Excess (BEa) -5.2 mEq/L (-2.0 to +3.0); CO2 Tension 42.4 mmHg (35.0-45.0); Calcium, Ionized (arterial) 1.04 mmol/L (1.12-1.30); Carboxyhemoglobin (COHb) 0.4 gm% (0.0-3.0); Hemoglobin (Hb) 13.4 g/dL (14.0-18.0); O2 Tension (PaO2), arterial 72.7 mmHg (> 70.0); Potassium - ABG Lab 3.37 mmol/L (3.70-5.30); pH, Arterial 7.31 (7.35-7.45)
[2021-11-24 09:45] LABS: Puncture Site Arterial Line
[2021-11-24 09:45] LABS: Puncture Site Arterial Line
[2021-11-24] MEDS: Cefepime 2 GM in Sodium Chloride 0.9% 100 ML IVPB SCH ×2 (11:24→21:29)
[2021-11-24] MEDS ORDERED: Furosemide 40 MG/4 ML VIAL SLOW IVP SCH (12:45)
[2021-11-24] MEDS: Morphine 4 MG/ML VIAL SLOW IVP PRN (21:28)
[2021-11-25] MEDS: Morphine 4 MG/ML VIAL SLOW IVP PRN ×6 (00:23→23:06)
[2021-11-25] MEDS: metroNIDAZOLE 500 MG in Premix Bag 1 BAG IVPB SCH ×3 (02:36→18:13)
[2021-11-25] MEDS: Acetaminophen 650 MG/20.3 ML UDCUP PO SCH ×4 (02:36→20:16)
[2021-11-25 04:22] LABS: #Eosinphils 0.5 thou/uL (0.0-0.7); #Lymphocytes 1.5 thou/uL (1.20-3.40); #Monocytes 0.9 thou/uL (0.11-0.59); #Neutrophils 6.6 thou/uL (1.40-6.50); %Basophils 0.4 % (0.0-1.0); %Eosinophils 5.2 % (0.0-10.0); %Lymphocytes 15.8 % (21.0-51.0); %Monocytes 9.2 % (0.0-10.0); %Neutrophils 69.4 % (42.0-75.0); Hemoglobin 9.3 g/dL (14.0-18.0); Mean Corpuscular HGB CONC 33.4 g/dL (32.0-36.0); Mean Corpuscular Volume 95.6 fL (78.0-98.0); Mean Platelet Volume 7.9 fL (7.4-10.4); Platelet Count 172 thou/uL (130-400); White Blood Cell (WBC) Count 9.5 thou/uL (4.8-10.8)
[2021-11-25 04:25] LABS: ALT (SGPT) 7 U/L (8-55); AST (SGOT) 10 U/L (5-34); Albumin 2.8 g/dL (3.4-4.8); Alkaline Phosphatase 39 U/L (40-110); Anion Gap 12 mmol/L (10-20); BUN (Urea Nitrogen) 29 mg/dL (8.4-25.7); Bilirubin, Total 0.3 mg/dL (0.2-1.2); Calc. Creatinine Clearance 173 mL/min (70-130); Calcium 7.9 mg/dL (7.8-10.44); Carbon Dioxide 24 mmol/L (23-31); Chloride 105 mmol/L (98-107); Estimated GFR 99; Globulin 2.5 g/dL (2.4-3.5); Glucose 112 mg/dL (83-110); Magnesium 2.3 mg/dL (1.6-2.6); Potassium 3.6 mmol/L (3.5-5.1); Protein, Total 5.3 g/dL (5.8-8.1); Sodium 137 mmol/L (136-145)
[2021-11-25] MEDS: Sodium Chloride 0.9% 1,000 ML IV SCH (07:10)
[2021-11-25] MEDS: levETIRAcetam 500 MG/5 ML VIAL SLOW IVP SCH ×2 (07:28→20:12)
[2021-11-25] MEDS: Metoprolol Tartrate 5 MG/5 ML VIAL IVP SCH ×4 (07:29→20:12)
[2021-11-25] MEDS: Pantoprazole 40 MG VIAL IVP SCH (07:29)
[2021-11-25 07:34] LABS: Actual Bicarbonate (HCO3a) 24.1 mEq/L (22-28); Base Excess (BEa) 1.2 mEq/L (-2.0 to +3.0); CO2 Tension 32.4 mmHg (35.0-45.0); Calcium, Ionized (arterial) 1.09 mmol/L (1.12-1.30); Carboxyhemoglobin (COHb) 0.3 gm% (0.0-3.0); Hemoglobin (Hb) 10.2 g/dL (14.0-18.0); O2 Tension (PaO2), arterial 80.9 mmHg (> 70.0); Potassium - ABG Lab 3.61 mmol/L (3.70-5.30); pH, Arterial 7.49 (7.35-7.45)
[2021-11-25 07:36] LABS: Puncture Site RRA
[2021-11-25] MEDS: Cefepime 2 GM in Sodium Chloride 0.9% 100 ML IVPB SCH ×2 (10:53→23:07)
[2021-11-25] MEDS: Senokot S 8.6-50 MG TAB PER TUBE SCH (20:16)
[2021-11-25] MEDS: diphenhydrAMINE 50 MG/ML VIAL IVP PRN (21:34)
[2021-11-26] MEDS: Morphine 4 MG/ML VIAL SLOW IVP PRN (02:05)
[2021-11-26] MEDS: Acetaminophen 650 MG/20.3 ML UDCUP PO SCH ×4 (02:06→19:25)
[2021-11-26] MEDS: metroNIDAZOLE 500 MG in Premix Bag 1 BAG IVPB SCH ×3 (02:06→18:10)
[2021-11-26 03:57] LABS: #Eosinphils 0.3 thou/uL (0.0-0.7); #Lymphocytes 1.5 thou/uL (1.20-3.40); #Monocytes 0.9 thou/uL (0.11-0.59); %Basophils 0.4 % (0.0-1.0); %Eosinophils 3.2 % (0.0-10.0); %Neutrophils 74.3 % (42.0-75.0); Hemoglobin 10.1 g/dL (14.0-18.0); Mean Corpuscular HGB CONC 33.6 g/dL (32.0-36.0); Mean Corpuscular Hemoglobin 32.3 pg (27.0-31.0); Mean Corpuscular Volume 96.2 fL (78.0-98.0); Mean Platelet Volume 7.6 fL (7.4-10.4); Platelet Count 184 thou/uL (130-400); RBC Distribution Width 12.2 % (11.5-14.5); Red Blood Cell (RBC) Count 3.14 mill/uL (4.70-6.10); White Blood Cell (WBC) Count 10.8 thou/uL (4.8-10.8)
[2021-11-26 04:25] LABS: ALT (SGPT) 8 U/L (8-55); AST (SGOT) 10 U/L (5-34); Albumin 3.1 g/dL (3.4-4.8); Alkaline Phosphatase 39 U/L (40-110); Anion Gap 14 mmol/L (10-20); BUN (Urea Nitrogen) 27 mg/dL (8.4-25.7); Bilirubin, Total 0.2 mg/dL (0.2-1.2); Calc. Creatinine Clearance 174 mL/min (70-130); Calcium 8.3 mg/dL (7.8-10.44); Carbon Dioxide 23 mmol/L (23-31); Chloride 105 mmol/L (98-107); Estimated GFR 99; Globulin 2.7 g/dL (2.4-3.5); Glucose 133 mg/dL (83-110); Magnesium 2.1 mg/dL (1.6-2.6); Potassium 3.8 mmol/L (3.5-5.1); Protein, Total 5.8 g/dL (5.8-8.1); Sodium 138 mmol/L (136-145)
[2021-11-26] MEDS: Senokot S 8.6-50 MG TAB PER TUBE SCH ×2 (08:35→20:16)
[2021-11-26] MEDS: levETIRAcetam 500 MG/5 ML VIAL SLOW IVP SCH (08:35)
[2021-11-26] MEDS: Metoprolol Tartrate 5 MG/5 ML VIAL IVP SCH ×4 (08:35→20:11)
[2021-11-26] MEDS: Polyethylene Glycol 3350 17 GM Packet PER TUBE SCH (08:35)
[2021-11-26] MEDS: Pantoprazole 40 MG VIAL IVP SCH (08:35)
[2021-11-26] MEDS: Cefepime 2 GM in Sodium Chloride 0.9% 100 ML IVPB SCH ×2 (10:40→22:50)
[2021-11-26] MEDS: hydrALAZINE 20 MG/ML VIAL SLOW IVP PRN ×2 (10:59→22:50)
[2021-11-27] MEDS: hydrALAZINE 20 MG/ML VIAL SLOW IVP PRN ×2 (01:09→02:22)
[2021-11-27] MEDS: Acetaminophen 650 MG/20.3 ML UDCUP PO SCH ×5 (02:18→21:03)
[2021-11-27] MEDS: diphenhydrAMINE 50 MG/ML VIAL IVP PRN (02:22)
[2021-11-27] MEDS ORDERED: niCARdipine 25 MG in Sodium Chloride 0.9% 250 ML 250 ML IVPB SCH (02:30)
[2021-11-27] MEDS: metroNIDAZOLE 500 MG in Premix Bag 1 BAG IVPB SCH ×2 (02:54→10:51)
[2021-11-27 04:01] LABS: Anion Gap 17 mmol/L (10-20); BUN (Urea Nitrogen) 26 mg/dL (8.4-25.7); Calc. Creatinine Clearance 179 mL/min (70-130); Calcium 8.4 mg/dL (7.8-10.44); Carbon Dioxide 17 mmol/L (23-31); Chloride 104 mmol/L (98-107); Estimated GFR 100; Glucose 120 mg/dL (83-110); Magnesium 2.1 mg/dL (1.6-2.6); Potassium 4.8 mmol/L (3.5-5.1); Sodium 133 mmol/L (136-145)
[2021-11-27] MEDS: Senokot S 8.6-50 MG TAB PER TUBE SCH ×4 (09:50→21:08)
[2021-11-27] MEDS: Polyethylene Glycol 3350 17 GM Packet PER TUBE SCH ×2 (09:50→09:51)
[2021-11-27] MEDS: Pantoprazole 40 MG VIAL IVP SCH (09:51)
[2021-11-27] MEDS: Metoprolol Tartrate 5 MG/5 ML VIAL IVP SCH ×4 (09:52→21:02)
[2021-11-27] MEDS: Cefepime 2 GM in Sodium Chloride 0.9% 100 ML IVPB SCH (10:51)
[2021-11-27] MEDS ORDERED: Furosemide 40 MG/4 ML VIAL ONE (10:53)
[2021-11-27] MEDS ORDERED: Furosemide 40 MG/4 ML VIAL SLOW IVP SCH (11:30)
[2021-11-27 11:34] LABS: Actual Bicarbonate (HCO3v) 22 mEq/L (22-28); Base Excess 0.2 mEq/L (-2.0 to +3.0); Calcium, Ionized (venous) 1.05 mmol/L (1.16-1.32); Chloride (VBG) 104 mmol/L (98-106); Hemoglobin (Hb) 12.7 g/dL (12.6-17.4); Potassium (VBG) 4.12 mmol/L (3.70-5.30); Sodium 135.1 mmol/L (133-146); pH (venous) 7.53 (7.32-7.43)
[2021-11-27 11:49] LABS: INR-International Normal Ratio 1.2; Prothrombin Time 15.6 sec (12.0-14.7)
[2021-11-27 11:50] LABS: PTT 35.4 sec (22.9-36.1)
[2021-11-28] MEDS: Acetaminophen 650 MG/20.3 ML UDCUP PO SCH ×4 (02:22→19:57)
[2021-11-28 06:52] VITALS: BMI 35.6
[2021-11-28] MEDS: Metoprolol Tartrate 5 MG/5 ML VIAL IVP SCH ×4 (09:50→20:46)
[2021-11-28] MEDS: Pantoprazole 40 MG VIAL IVP SCH (09:51)
[2021-11-28] MEDS: Polyethylene Glycol 3350 17 GM Packet PER TUBE SCH (12:27)
[2021-11-28] MEDS: Senokot S 8.6-50 MG TAB PER TUBE SCH ×2 (12:28→20:01)
[2021-11-28] MEDS ORDERED: Furosemide 40 MG/4 ML VIAL ONE (22:52)
[2021-11-28 23:01] LABS: Actual Bicarbonate (HCO3a) 21.7 mEq/L (22-28); CO2 Tension 33.7 mmHg (35.0-45.0); Calcium, Ionized (arterial) 1.14 mmol/L (1.12-1.30); Carboxyhemoglobin (COHb) 0.6 gm% (0.0-3.0); Hemoglobin (Hb) 12.4 g/dL (14.0-18.0); Potassium - ABG Lab 3.82 mmol/L (3.70-5.30); pH, Arterial 7.43 (7.35-7.45)
[2021-11-28 23:03] LABS: ALV-art Gradient 616.375 mmHg (0-20); O2 Tension (PaO2), arterial 54.5 mmHg (> 70.0); Puncture Site LRA
[2021-11-28 23:20] LABS: #Eosinphils 0.2 thou/uL (0.0-0.7); #Lymphocytes 1.5 thou/uL (1.20-3.40); #Monocytes 0.4 thou/uL (0.11-0.59); #Neutrophils 9.3 thou/uL (1.40-6.50); %Basophils 0.4 % (0.0-1.0); %Eosinophils 1.3 % (0.0-10.0); %Lymphocytes 13.2 % (21.0-51.0); %Monocytes 3.7 % (0.0-10.0); %Neutrophils 81.3 % (42.0-75.0); Hemoglobin 11.9 g/dL (14.0-18.0); Mean Corpuscular Hemoglobin 32.2 pg (27.0-31.0); Mean Corpuscular Volume 94.8 fL (78.0-98.0); Mean Platelet Volume 7.7 fL (7.4-10.4); Platelet Count 251 thou/uL (130-400); RBC Distribution Width 13.1 % (11.5-14.5); White Blood Cell (WBC) Count 11.4 thou/uL (4.8-10.8)
[2021-11-28 23:34] LABS: Lactic Acid 1.4 mmol/L (0.5-2.2)
[2021-11-28 23:40] LABS: ALT (SGPT) 14 U/L (8-55); AST (SGOT) 20 U/L (5-34); Albumin 3.5 g/dL (3.4-4.8); Alkaline Phosphatase 59 U/L (40-110); Anion Gap 19 mmol/L (10-20); BUN (Urea Nitrogen) 35 mg/dL (8.4-25.7); Bilirubin, Total 0.4 mg/dL (0.2-1.2); Calc. Creatinine Clearance 155 mL/min (70-130); Calcium 8.4 mg/dL (7.8-10.44); Carbon Dioxide 19 mmol/L (23-31); Chloride 106 mmol/L (98-107); Estimated GFR 95; Glucose 154 mg/dL (83-110); Potassium 4.2 mmol/L (3.5-5.1); Protein, Total 6.5 g/dL (5.8-8.1); Sodium 140 mmol/L (136-145)
[2021-11-28 23:51] LABS: Troponin I 0.139 ng/mL (< 0.028)
[2021-11-29] MEDS: Acetaminophen 650 MG/20.3 ML UDCUP PO SCH ×4 (03:17→21:00)
[2021-11-29 04:08] LABS: #Eosinphils 0.1 thou/uL (0.0-0.7); #Lymphocytes 1.3 thou/uL (1.20-3.40); #Monocytes 0.9 thou/uL (0.11-0.59); #Neutrophils 10.7 thou/uL (1.40-6.50); %Basophils 0.2 % (0.0-1.0); %Eosinophils 0.6 % (0.0-10.0); %Lymphocytes 10.1 % (21.0-51.0); %Monocytes 6.7 % (0.0-10.0); %Neutrophils 82.4 % (42.0-75.0); Hemoglobin 11.9 g/dL (14.0-18.0); Mean Corpuscular HGB CONC 33.8 g/dL (32.0-36.0); Mean Corpuscular Volume 94.8 fL (78.0-98.0); Mean Platelet Volume 7.6 fL (7.4-10.4); Platelet Count 243 thou/uL (130-400); RBC Distribution Width 13.2 % (11.5-14.5); Red Blood Cell (RBC) Count 3.72 mill/uL (4.70-6.10)
[2021-11-29 04:29] LABS: ALT (SGPT) 10 U/L (8-55); AST (SGOT) 16 U/L (5-34); Albumin 3.4 g/dL (3.4-4.8); Alkaline Phosphatase 57 U/L (40-110); Anion Gap 17 mmol/L (10-20); BUN (Urea Nitrogen) 34 mg/dL (8.4-25.7); Bilirubin, Total 0.4 mg/dL (0.2-1.2); Calc. Creatinine Clearance 153 mL/min (70-130); Calcium 8.4 mg/dL (7.8-10.44); Carbon Dioxide 22 mmol/L (23-31); Chloride 106 mmol/L (98-107); Estimated GFR 95; Globulin 3.3 g/dL (2.4-3.5); Glucose 107 mg/dL (83-110); Potassium 4.3 mmol/L (3.5-5.1); Protein, Total 6.7 g/dL (5.8-8.1); Sodium 141 mmol/L (136-145)
[2021-11-29] MEDS: Senokot S 8.6-50 MG TAB PER TUBE SCH ×2 (09:43→21:00)
[2021-11-29] MEDS: Metoprolol Tartrate 5 MG/5 ML VIAL IVP SCH ×4 (09:44→21:00)
[2021-11-29] MEDS: Polyethylene Glycol 3350 17 GM Packet PER TUBE SCH (09:44)
[2021-11-29] MEDS: Pantoprazole 40 MG VIAL IVP SCH (09:44)
[2021-11-29] MEDS ORDERED: Furosemide 20 MG/2 ML VIAL SLOW IVP SCH (15:00)
[2021-11-29 20:08] LABS: Actual Bicarbonate (HCO3a) 29.8 mEq/L (22-28); Base Excess (BEa) -3.8 mEq/L (-2.0 to +3.0); Calcium, Ionized (arterial) 1.24 mmol/L (1.12-1.30); Carboxyhemoglobin (COHb) 0.2 gm% (0.0-3.0); Hemoglobin (Hb) 13.1 g/dL (14.0-18.0); O2 Tension (PaO2), arterial 181.8 mmHg (> 70.0); Potassium - ABG Lab 4.74 mmol/L (3.70-5.30)
[2021-11-29 20:31] LABS: CO2 Tension 114.2 mmHg (35.0-45.0); Puncture Site RRA; pH, Arterial 7.03 (7.35-7.45)
[2021-11-29 21:21] LABS: Actual Bicarbonate (HCO3a) 29.5 mEq/L (22-28); Base Excess (BEa) 0.1 mEq/L (-2.0 to +3.0); Calcium, Ionized (arterial) 1.22 mmol/L (1.12-1.30); Carboxyhemoglobin (COHb) 0.8 gm% (0.0-3.0); O2 Tension (PaO2), arterial 114.4 mmHg (> 70.0); Potassium - ABG Lab 4.75 mmol/L (3.70-5.30); pH, Arterial 7.22 (7.35-7.45)
[2021-11-29 21:22] LABS: ALV-art Gradient 78.925 mmHg (0-20); CO2 Tension 73.5 mmHg (35.0-45.0); Puncture Site RRA
[2021-11-30] MEDS: Acetaminophen 650 MG/20.3 ML UDCUP PO SCH ×4 (03:09→20:00)
[2021-11-30] MEDS ORDERED: Furosemide 20 MG/2 ML VIAL SLOW IVP SCH (06:00)
[2021-11-30 08:23] LABS: Actual Bicarbonate (HCO3a) 26.5 mEq/L (22-28); Base Excess (BEa) 2.9 mEq/L (-2.0 to +3.0); CO2 Tension 37.1 mmHg (35.0-45.0); Calcium, Ionized (arterial) 1.15 mmol/L (1.12-1.30); Carboxyhemoglobin (COHb) 0.2 gm% (0.0-3.0); Hemoglobin (Hb) 12.7 g/dL (14.0-18.0); O2 Tension (PaO2), arterial 77.2 mmHg (> 70.0); Potassium - ABG Lab 4.66 mmol/L (3.70-5.30); pH, Arterial 7.47 (7.35-7.45)
[2021-11-30 08:24] LABS: ALV-art Gradient 88.825 mmHg (0-20); Puncture Site RBA
[2021-11-30] MEDS: Polyethylene Glycol 3350 17 GM Packet PER TUBE SCH (09:07)
[2021-11-30] MEDS: Metoprolol Tartrate 5 MG/5 ML VIAL IVP SCH ×2 (09:07→13:22)
[2021-11-30] MEDS: Pantoprazole 40 MG VIAL IVP SCH (09:07)
[2021-11-30] MEDS: Senokot S 8.6-50 MG TAB PER TUBE SCH ×2 (09:07→21:08)
[2021-11-30 09:53] LABS: Hemoglobin 13.1 g/dL (14.0-18.0); Red Blood Cell (RBC) Count 4.18 mill/uL (4.70-6.10); White Blood Cell (WBC) Count 14.9 thou/uL (4.8-10.8)
[2021-11-30 09:54] LABS: Mean Corpuscular HGB CONC 31.7 g/dL (32.0-36.0); Mean Corpuscular Hemoglobin 31.3 pg (27.0-31.0); Mean Corpuscular Volume 98.8 fL (78.0-98.0); RBC Distribution Width 13.2 % (11.5-14.5)
[2021-11-30 09:55] LABS: %Lymphocytes 10.5 % (21.0-51.0); %Monocytes 7.5 % (0.0-10.0); %Neutrophils 81.2 % (42.0-75.0); Anion Gap 20 mmol/L (10-20); BUN (Urea Nitrogen) 38 mg/dL (8.4-25.7); Calc. Creatinine Clearance 138 mL/min (70-130); Calcium 9.2 mg/dL (7.8-10.44); Carbon Dioxide 26 mmol/L (23-31); Chloride 103 mmol/L (98-107); Estimated GFR 94; Glucose 102 mg/dL (83-110); Mean Platelet Volume 7.8 fL (7.4-10.4); Platelet Count 271 thou/uL (130-400); Potassium 5.5 mmol/L (3.5-5.1); Sodium 143 mmol/L (136-145)
[2021-11-30 09:56] LABS: #Eosinphils 0.1 thou/uL (0.0-0.7); #Lymphocytes 1.6 thou/uL (1.20-3.40); #Monocytes 1.1 thou/uL (0.11-0.59); #Neutrophils 12.1 thou/uL (1.40-6.50); %Basophils 0.2 % (0.0-1.0); %Eosinophils 0.7 % (0.0-10.0)
[2021-11-30] MEDS ORDERED: Amiodarone 450 MG in Dextrose 5% in Water 250 ML IVPB SCH (12:30)
[2021-11-30] MEDS ORDERED: Amiodarone 150 MG in Dextrose 5% in Water 100 ML IVPB SCH (13:00)
[2021-11-30] MEDS: metroNIDAZOLE 500 MG in Premix Bag 1 BAG IVPB SCH ×2 (14:46→22:13)
[2021-11-30] MEDS: HumaLOG 300 UNITS/3 ML VIAL SC PRN (16:44)
[2021-11-30 17:10] LABS: Calcium, Ionized (arterial) 1.22 mmol/L (1.12-1.30); Carboxyhemoglobin (COHb) 0.6 gm% (0.0-3.0); Hemoglobin (Hb) 13.3 g/dL (14.0-18.0); O2 Tension (PaO2), arterial 89.6 mmHg (> 70.0); Potassium - ABG Lab 4.34 mmol/L (3.70-5.30)
[2021-11-30 17:12] LABS: CO2 Tension 85.5 mmHg (35.0-45.0); Puncture Site RRA; pH, Arterial 7.15 (7.35-7.45)
[2021-11-30 17:13] LABS: ALV-art Gradient 53.075 mmHg (0-20)
[2021-11-30] MEDS ORDERED: Morphine 4 MG/ML VIAL SLOW IVP PRN (19:56)
[2021-11-30] MEDS ORDERED: Scopolamine 1.5 mg/72 hour Patch TD SCH (20:00)
[2021-11-30] MEDS: Cefepime 1 GM in Sodium Chloride 0.9% 100 ML IVPB SCH ×2 (21:08→22:13)
[2021-11-30] MEDS: Lorazepam (BATCHED) 2 MG/ML SYR SLOW IVP PRN (22:12)
[2021-11-30 22:59] VITALS: BP 111/58
[2021-12-01] MEDS: Morphine 4 MG/ML VIAL SLOW IVP PRN ×4 (00:05→18:38)
[2021-12-01] MEDS: Acetaminophen 650 MG/20.3 ML UDCUP PO SCH ×2 (02:18→09:04)
[2021-12-01] MEDS: metroNIDAZOLE 500 MG in Premix Bag 1 BAG IVPB SCH (06:21)
[2021-12-01 07:57] LABS: Actual Bicarbonate (HCO3a) 28.8 mEq/L (22-28); Base Excess (BEa) 2.6 mEq/L (-2.0 to +3.0); CO2 Tension 51.5 mmHg (35.0-45.0); Calcium, Ionized (arterial) 1.13 mmol/L (1.12-1.30); Carboxyhemoglobin (COHb) 0.1 gm% (0.0-3.0); Hemoglobin (Hb) 12.6 g/dL (14.0-18.0); O2 Tension (PaO2), arterial 147.6 mmHg (> 70.0); pH, Arterial 7.37 (7.35-7.45)
[2021-12-01 08:01] LABS: ALV-art Gradient 287.125 mmHg (0-20); Puncture Site RRA
[2021-12-01] MEDS: Cefepime 1 GM in Sodium Chloride 0.9% 100 ML IVPB SCH (09:03)
[2021-12-01] MEDS: Pantoprazole 40 MG VIAL IVP SCH (09:04)
[2021-12-01] MEDS: Senokot S 8.6-50 MG TAB PER TUBE SCH (09:04)
[2021-12-01] MEDS: Polyethylene Glycol 3350 17 GM Packet PER TUBE SCH (09:04)
[2021-12-01] MEDS: Lorazepam (BATCHED) 2 MG/ML SYR SLOW IVP PRN ×2 (16:45→18:57)
[2021-12-02 00:19] VITALS: TEMP 99.1
[2021-12-02] MEDS: Morphine 4 MG/ML VIAL SLOW IVP PRN ×6 (05:29→12:24)
[2021-12-02] MEDS: Lorazepam (BATCHED) 2 MG/ML SYR SLOW IVP PRN (11:33)
== END 2021-12-02 12:38 | disposition expired | DRG 25 ==
LOC: ERS 02:59 → CCU 03:18 → NEURO 11-28 15:09 → IMCU/EMU 11-28 23:22 → CCU 11-29 20:18
PROVIDERS: ADMIT Internal Medicine; ATTEND Internal Medicine
PROC: 00C40ZZ Extirpation of Matter from Intracranial Subdural Space, Open Approach (ICD-10-PCS; principal; 2021-11-20)
PROC: 5A1955Z Respiratory Ventilation, Greater than 96 Consecutive Hours (ICD-10-PCS; 2021-11-20)
PROC: 30283B1 Transfusion of Nonautologous 4-Factor Prothrombin Complex Concentrate into Vein, Percutaneous Approach (ICD-10-PCS; 2021-11-20)
PROC: 3E033XZ Introduction of Vasopressor into Peripheral Vein, Percutaneous Approach (ICD-10-PCS; 2021-11-21)
PROC: 5A09457 Assistance with Respiratory Ventilation, 24-96 Consecutive Hours, Continuous Positive Airway Pressure (ICD-10-PCS; 2021-11-28)
PROC: 0DH67UZ Insertion of Feeding Device into Stomach, Via Natural or Artificial Opening (ICD-10-PCS; 2021-11-28)
PROC: 3E0G76Z Introduction of Nutritional Substance into Upper GI, Via Natural or Artificial Opening (ICD-10-PCS; 2021-11-28)
DX: I62.01 Nontraumatic acute subdural hemorrhage (principal); Z66 Do not resuscitate; Z20.822 Contact with and (suspected) exposure to COVID-19; Z51.5 Encounter for palliative care; G93.5 Compression of brain; J96.01 Acute respiratory failure with hypoxia; J96.02 Acute respiratory failure with hypercapnia; I21.4 Non-ST elevation (NSTEMI) myocardial infarction; J69.0 Pneumonitis due to inhalation of food and vomit; J98.11 Atelectasis; E87.2 Acidosis; I42.9 Cardiomyopathy, unspecified; I50.22 Chronic systolic (congestive) heart failure; I13.0 Hypertensive heart and chronic kidney disease with heart failure and stage 1 through stage 4 chronic kidney disease, or unspecified chronic kidney disease; I61.1 Nontraumatic intracerebral hemorrhage in hemisphere, cortical; I25.10 Atherosclerotic heart disease of native coronary artery without angina pectoris; E78.5 Hyperlipidemia, unspecified; J44.9 Chronic obstructive pulmonary disease, unspecified; E11.22 Type 2 diabetes mellitus with diabetic chronic kidney disease; N18.9 Chronic kidney disease, unspecified; E03.9 Hypothyroidism, unspecified; I49.5 Sick sinus syndrome; I95.1 Orthostatic hypotension; I48.0 Paroxysmal atrial fibrillation; R94.31 Abnormal electrocardiogram [ECG] [EKG]; E66.9 Obesity, unspecified; I95.89 Other hypotension; Z68.33 Body mass index [BMI] 33.0-33.9, adult; Z95.1 Presence of aortocoronary bypass graft; Z79.01 Long term (current) use of anticoagulants; Z78.1 Physical restraint status; Z87.891 Personal history of nicotine dependence; Z88.0 Allergy status to penicillin; Z79.82 Long term (current) use of aspirin; Z79.899 Other long term (current) drug therapy; Z79.890 Hormone replacement therapy; Z79.84 Long term (current) use of oral hypoglycemic drugs
CPT/HCPCS: 31500; 36415; 36416; 36600; 51702; 70450; 71045; 74018; 80048; 80053; 80162; 81003; 81015; 82553; 82805; 83605; 83690; 83735; 83880; 83930; 84443; 84484; 85025; 85610; 85730; 86850; 86900; 86901; 87040; 88304; 89220; 93005; 93010; 93306; 93970; 94002; 94003; 96365; 96366; 96368; 96375; C1713; C9113; J0282; J0360; J0690; J0692; J1100; J1160; J1170; J1200; J1815; J1940; J1953; J2001; J2060; J2150; J2250; J2270; J2370; J2405; J2704; J3475; J3480; J3490; J7050; J7070; J7168; J7799; U0002; U0003; U0005